=== PATIENT | male | born 1950 ===

== ENCOUNTER → 2025-02-05 11:23 | Outpatient (REF) | payer MEDICARE, SELFPAY ==
--- OUTSIDE RECORDS SUMMARY | 2024-10-11 03:15 | XMS_ITS ---
Author Organization [facility] Address [address] [facility] [address] [place] [address] Care Team Providers Care It Consulting Manager Name Role Phone KRISTA VILLEGAS Primary Care Provider REASON FOR VISIT fatigue, requesting stress test Encounters Encounter Location Date Provider Diagnosis [facility] [address] [facility] [address] [place] [address] 10/11/2024 KRISTA VILLEGAS Plan Of Treatment Next Appt Details Provider Name:KRISTA VILLEGAS , 02/20/2025 08:30:00 AM, [address] [place] [address], [place], [address], Provider Name:KRISTA VILLEGAS , 04/25/2025 08:00:00 AM, [address] [place] [address], [place], [address], Progress Notes * Henrik VILLEGAS JrDOB:1950 (74 yo M)Acc No.[id number]:10/11/2024 Progress Notes Patient: Teodoro CARRILLOloretta Gilbert Provider: Alexandria VILLEGAS MD :1950 A ge:74 Y S ex:Male Date:10/11/2024 [address] [id number] Subjective: * Chief Complaints: * 1 . Fatigue, requesting stress test. * Medical History: Objective: * Vitals: Assessment: Plan: * Treatment: * Images: * Electronic signature of VAUGHN VILLEGAS MD on 02/05/2025 at 02:30 PM EST Sign off status: Pending * Provider: Alexandria VILLEGAS MD Date: 0 10/11/2024 Generated for Lawrence mantilla/Isabelle/Pedro Luis on: 1 04/07/2024 02:30 PM EST
--- OUTSIDE RECORDS SUMMARY | 2025-02-05 14:30 | XMS_ITS | Patient Health Record ---
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 Metabolic Panel ([id number] Reviewed date:07/11/2024 04:28:20 PM Interpretation: Performing Lab:[facility], [address] [facility], Phone - [phone], Director - Darío Notes/Report: Glucose 104 70-99 mg/dL BUN 16 8-27 mg/dL Creatinine 0.96 0.76-1.27 mg/dL eGFR 82 >59 mL/min/1.73 BUN/Creatinine Ratio 17 10-24 Sodium 140 134-144 mmol/L Potassium 4.7 3.5-5.2 mmol/L Chloride 104 96-106 mmol/L Carbon Dioxide, Total 20 20-29 mmol/L Calcium 9.2 8.6-10.2 mg/dL Protein, Total 6.6 6.0-8.5 g/dL Albumin 4.4 3.8-4.8 g/dL Globulin, Total 2.2 1.5-4.5 g/dL Bilirubin, Total 1.5 0.0-1.2 mg/dL Alkaline Phosphatase 99 44-121 IU/L AST (SGOT) 17 0-40 IU/L ALT (SGPT) 18 0-44 IU/L Reason For Referral Reason Post Concussion Reha b Diagnosis 1 Postconcussional syn drome (F07.81) Referral Organization [facility] Referring Provider First Name [facility] Referring Provider [facility] Name [facility] Referring Provider Speciality Internal edicine Referred Provider Specialty Physical The rapist General Notes Referral faxed to [facility] per patient's request. Please contact the patient to schedule., Yanely Cooper 07/19/2024 09:23:42 AM > Referral Priority Routine Reason SOB On exertion Pl ease evaluate and treat Diagnosis 1 Shortness of breath (R06.02) Referral Organization [facility] Referring Provider First Name [facility] Referring Provider Last Name [facility] Referring Provider Speciality Internal edicine Referred Provider Specialty Cardiology General Notes Please call the [facility] to schedule the appointment, Encounter created and SMS sent to the pt., Adrianna Craig 10/12/2024 08:12:27 AM > Referral Priority Routine Medications Medication SIG (Take, Route, Fr equency, Duration) Notes Start Date End Date Status predniSONE 20 MG 3 tablets once a day for 5 days, 2 tablets once a day for 5 days, 1 tablet once a day for 5 days Orally; Duration: 15 days 04/12/2024 Not-Taking Azithromycin 250 MG as directed Orally 2 tablets on the first day, then 1 tablet daily; Duration: 5 days 04/12/2024 Not-Taking Wegovy 0.5 MG/0.5ML 0.5 mL Subcutaneous once a week; Duration: 30 days 07/03/2024 Active Immunizations Vaccine Route Administration Date Status Comme nts COVID 19 Pfizer Unknown 05/21/2020 Administered COVID 19 Pfizer Unknown 06/12/2020 Administered Pneumococcal conjugate PCV 13 Unknown 09/21/2017 Admini stered Pneumococcal polysaccharide PPV23 Unknown 08/13/2015 Ad ministered Tdap Unknown 01/05/2020 Administered TDAP Unknown 08/12/2007 Administered Social History Tobacco Use: Social History Observation Description Date Details (start date - stop date) Never Smoker NA - NA Tobacco Use/Smoking Question Answer Notes Are you a nonsmoker Alcohol Screen (Audit-C) Question Answer Notes Did you have a drink contain ing alcohol in the past year? Yes How often did you have a dri nk containing alcohol in the past year? 2 to 4 times a month (2 points) How many drinks did you have on a typical day when you were drinking in the past year? 1 or 2 drinks (0 point) How often did you have 6 or more drinks on one occasion in the past year? Never (0 point) Points 2 Interpretation Negative Problems Problem Type SNOMED Code ICD Code Onset Dates Problem Status W/U Status Risk Notes Problem Tinea pedis (8341533) Tinea pedis (B35.3) Active confirmed Problem Obesity due to excess calories (939558891) Other obesity due to excess calories (E66.09) Active confirmed Problem Postconcussion syndrome (77754890) Postconcussional syndrome (F07.81) Active confirmed Problem Snoring (05696787) Snoring (R06.83) Active confirmed Problem Adult health examination (052271252) Encounter for general adult medical examination without abnormal findings (Z00.00) Active confirmed Problem History of malignant neoplasm of prostate (124888633) Personal history of malignant neoplasm of prostate (Z85.46) Active confirmed Problem Obstructive sleep apnea (62176194) Obstructive sleep apnea (G47.33) Active confirmed Vital Signs Heart Rate 72 /min 01/22/2025 Temperature 97.3 degrees Fahrenheit 01/22/2025 Oximetry 99 % 01/22/2025 Blood pressure diastolic 70 mm Hg 01/22/2025 Height 68.11 in 01/22/2025 Blood pressure systolic 120 mm Hg 01/22/2025 Weight 206.4 lbs 01/22/2025 BMI 31.28 kg/m2 01/22/2025 Encounters Encounter Location Date Provider Diagnosis [address] [address] 03/21/2024 KRISTA VILLEGAS [address] [address] 04/12/2024 Ghadeer Mazloum Cough R05.[address] [address] 04/24/2024 VEALSCO GUL Encounter for genera l adult medical examination without abnormal findings Z00.00 ; Other obesity due to excess calories E66.09 ; Dietary counseling and surveillance Z71.3 and Personal history of malignant neoplasm of prostate Z85.[address] [place] [address] 05/09/[address] [place] [address] 05/10/[address] [place] [address] 06/19/2024 VELASCO GUL Other obesity due to excess calories E66.09 ; Dietary counseling and surveillance Z71.3 and Encounter for removal of sutures Z48.[address] [place] [address] 08/09/2024 VELASCO NELLY [address] [place] [address] 08/21/2024 VELASCO GUL Other obesity due to excess calories E66.09 and Dietary counseling and surveillance Z71.[address] [place] [address] 10/11/2024 VELASCO GUL Other obesity due to excess calories E66.09 ; Dietary counseling and surveillance Z71.3 and Shortness of breath R06.[address] [place] [address] 11/14/2024 VELASCO GUL Other obesity due to excess calories E66.09 and Dietary counseling and surveillance Z71.[address] [place] [address] 12/12/2024 VELASCO GUL Other obesity due to excess calories E66.09 ; Dietary counseling and surveillance Z71.3 and Obstructive sleep apnea G47.[address] [place] [address] 01/22/2025 VELASCO GUL Other obesity due to excess calories E66.09 ; Dietary counseling and surveillance Z71.3 and Obstructive sleep apnea G47.[address] [place] [address] 01/23/[address] [place] [address] 05/11/2024 VELASCO GU Other obesity due to excess calories E66.09 and Dietary counseling and surveillance Z71.[address] [place] [address] 05/11/[address] [place] [address] 06/02/[address] [place] [address] 07/03/[address] [place] [address] 07/03/[address] [place] [address] 07/04/2024 VELASCO [facility] History of falling Z91.81 and Unspecified injury of head, initial encounter S09.90XA [address] [place] [address] 07/19/[address] [place] [address] 08/08/[address] [place] [address] 10/12/2024 VELASCO [facility] Assessments Encounter Date Diagnosis (ICD Code) Assessment Notes Treatment Notes Treatment Clinical Notes Section Notes 04/24/2024 Other obesity due to excess calories (ICD-10 - E66.09) Jigna 73 years old pleasant gentleman with history of prostate cancer is here today for annual physical. Complains of dribbling of urine. Plan is as follows Dribbling of urine. Secondary to prostatectomy for prostate cancer. He can use Purewick and he was advised to discuss with his urologist at [place] for any other remedies. Obesity. Complications of obesity discussed with the patient and advised low calorie, low carbohydrate diet and regular exercise. Goal is to lose 6 pounds a month. If interested he can make a follow-up appointment at we will discuss medical weight management. Screening blood work ordered. He is up to date on a specific screening. he is full code and his is his healthcare proxy. Molst form discussed with the patient 04/24/2024 Encounter for general adult medical examination without abnormal findings (ICD-10 - Z00.00) Jigna 73 years old pleasant gentleman with history of prostate cancer is here today for annual physical. Complains of dribbling of urine. Plan is as follows Dribbling of urine. Secondary to prostatectomy for prostate cancer. He can use Purewick and he was advised to discuss with his urologist at [place] for any other remedies. Obesity. Complications of obesity discussed with the patient and advised low calorie, low carbohydrate diet and regular exercise. Goal is to lose 6 pounds a month. If interested he can make a follow-up appointment at we will discuss medical weight management. Screening blood work ordered. He is up to date on a specific screening. he is full code and his is his healthcare proxy. Molst form discussed with the patient 05/11/2024 Other obesity due to excess calories (ICD-10 - E66.09) Henrik is 73 years old gentleman with a history of prostate cancer, obesity was seen today to have yearly EKG done. EKG is normal sinus rhythm at 61 bpm with no acute ST or T wave changes, no bundle-branch blocks, normal intervals. 05/11/2024 Dietary counseling and surveillance (ICD-10 - Z71.3) Henrik is 73 years old gentleman with a history of prostate cancer, obesity was seen today to have yearly EKG done. EKG is normal sinus rhythm at 61 bpm with no acute ST or T wave changes, no bundle-branch blocks, normal intervals. 06/19/2024 Other obesity due to excess calories (ICD-10 - E66.09) Henrik is 73 years old gentleman with a history of prostate cancer is here for medical weight management. He also had a mechanical fall and had 12 joey placed on his scalp and it needs to be removed. Plan is as follows Staple removal. Under sterile condition with the consent of the patient 12 joey were removed. There were no signs of any infection or discharge. Advised to keep the area clean. Diet recommendation. Different dietary modalities discussed with the patient. She was advised to restrict her calories to less than 1500 kcal in 24 hours. Portion control recommended. Low glycemic index foods explained and education material given. Information on [employer] discussed. Mediterranean diet, keto diet, low carbohydrate diet explained and discussed with the patient. Patient advised to download applications for calorie counting. Patient was also advised to use kxdy-ebj-wktuehv vitamin D3 supplements and multivitamins. Pharmacotherapy. Patient will discuss with her insurance company regarding pharmacotherapy before re-proceed. Different medications and their side effects discussed with the patient. She will benefit from pharmacotherapy and does not have any contraindications Exercise. Patient encouraged to To do regular exercise. Encouraged to do aerobic and anaerobic exercises at least 3-4 days a week. Goal is to burn at least 250-500 in One session Behavioral therapy. Importance of behavioral health and weight management discussed with the patient. CBT and motivational interviewing will benefit the patient. If needed will do a referral to a psychologist/psych iatrist. Bariatric surgery. He does not qualifyfor surgery Screening blood work ordered. Assessed. The patient was assessed and patient does not have any behavioral risk or factors affecting goals of therapy Advised. Patient was given a personalized plan regarding the goals and pros and cons of the treatment Agreed. Collaboratively picked up a treatment plan and patient agreed with the plan Assisted. Patient is assisted in achieving goals. Arrange. Schedule follow-up with the patient to provide ongoing assistance and support and to review the management and treatment plan. Counseling. A total of 35 minutes spent with the patient and more than 50% of time was spent with the patient counseling and educating on different diets, side effects of different medications, pros and cons of medical and surgical weight management, importance of exercise and weight loss and psych intervention for weight loss. 07/04/2024 History of falling (ICD-10 - Z91.81) 08/21/2024 Other obesity due to excess calories (ICD-10 - E66.09) Henrik is 74 years old gentleman with prostate cancer is here today for medical weight management. Dietary recommendations. Food recall was done today and patient advised to be on low calorie, low carbohydrate diet. Restrict calories to less than 1500 kcal in 24 hours. Low glycemic index foods and encouraged. Meal replacements were recommended. Advised to use oknl-qmx-eknxqle multivitamins and vitamin D. Advised to use calorie counter and adhere to portion control. Monthly goal is to lose 4-6 pounds Pharmacotherapy. today he had first dose of wegovy 0.25 mg every weekly. Side effects explained to the patient. Goal is to lose 3-5% of body weight in 3 months. Exercise. Patient encouraged to increase frequency, intensity and duration of exercise. Encouraged to burn at least 250-500 kcal in one session. Also encouraged to do weight training Assess. Different risk factors discussed with the patient and addressed Advise. Patient was given clear And specific advise that she will comply with Low-calorie diet and try not to exceed more than 1300 kcal in 24 hours. Agree. Mutually agreed to work together to achieve appropriate goals Assist. Motivational interviewing done. Arrange. Follow-up appointment arranged. Counseling. 15 minutes spent Face to face with the patient more than 50% of time was spent counseling 08/21/2024 Dietary counseling and surveillance (ICD-10 - Z71.3) Henrik is 74 years old gentleman with prostate cancer is here today for medical weight management. Dietary recommendations. Food recall was done today and patient advised to be on low calorie, low carbohydrate diet. Restrict calories to less than 1500 kcal in 24 hours. Low glycemic index foods and encouraged. Meal replacements were recommended. Advised to use wauo-mkl-ediwyhm multivitamins and vitamin D. Advised to use calorie counter and adhere to portion control. Monthly goal is to lose 4-6 pounds Pharmacotherapy. today he had first dose of wegovy 0.25 mg every weekly. Side effects explained to the patient. Goal is to lose 3-5% of body weight in 3 months. Exercise. Patient encouraged to increase frequency, intensity and duration of exercise. Encouraged to burn at least 250-500 kcal in one session. Also encouraged to do weight training Assess. Different risk factors discussed with the patient and addressed Advise. Patient was given clear And specific advise that she will comply with Low-calorie diet and try not to exceed more than 1300 kcal in 24 hours. Agree. Mutually agreed to work together to achieve appropriate goals Assist. Motivational interviewing done. Arrange. Follow-up appointment arranged. Counseling. 15 minutes spent Face to face with the patient more than 50% of time was spent counseling 10/11/2024 Other obesity due to excess calories (ICD-10 - E66.09) Henrik is 74 years old gentleman with prostate cancer is here today for medical weight management. He has lost 7 pounds on our scale and roughly 10 pounds on his scale. He also complains of shortness of breath. Plan is as follows Shortness of breath. Differential is deconditioning, coronary insufficiency. He has risk factors for coronary artery disease. We will do echocardiogram and referral to jogger operator for further evaluation. Dietary recommendations. Food recall was done today and patient advised to be on low calorie, low carbohydrate diet. Restrict calories to less than 1500 kcal in 24 hours. Low glycemic index foods and encouraged. Meal replacements were recommended. Advised to use oaim-wmr-mwbrvut multivitamins and vitamin D. Advised to use calorie counter and adhere to portion control. Monthly goal is to lose 4-6 pounds Pharmacotherapy.. He is losing weight and we discussed to continue wegovy 0.25 mg every weekly. Side effects explained to the patient. Goal is to lose 3-5% of body weight in 3 months. Exercise. Patient encouraged to increase frequency, intensity and duration of exercise. Encouraged to burn at least 250-500 kcal in one session. Also encouraged to do weight training Assess. Different risk factors discussed with the patient and addressed Advise. Patient was given clear And specific advise that she will comply with Low-calorie diet and try not to exceed more than 1300 kcal in 24 hours. Agree. Mutually agreed to work together to achieve appropriate goals Assist. Motivational interviewing done. Arrange. Follow-up appointment arranged. Counseling. 15 minutes spent Face to face with the patient more than 50% of time was spent counseling 10/11/2024 Dietary counseling and surveillance (ICD-10 - Z71.3) Henrik is 74 years old gentleman with prostate cancer is here today for medical weight management. He has lost 7 pounds on our scale and roughly 10 pounds on his scale. He also complains of shortness of breath. Plan is as follows Shortness of breath. Differential is deconditioning, coronary insufficiency. He has risk factors for coronary artery disease. We will do echocardiogram and referral to jogger operator for further evaluation. Dietary recommendations. Food recall was done today and patient advised to be on low calorie, low carbohydrate diet. Restrict calories to less than 1500 kcal in 24 hours. Low glycemic index foods and encouraged. Meal replacements were recommended. Advised to use jhbt-zqn-kjeugmj multivitamins and vitamin D. Advised to use calorie counter and adhere to portion control. Monthly goal is to lose 4-6 pounds Pharmacotherapy.. He is losing weight and we discussed to continue wegovy 0.25 mg every weekly. Side effects explained to the patient. Goal is to lose 3-5% of body weight in 3 months. Exercise. Patient encouraged to increase frequency, intensity and duration of exercise. Encouraged to burn at least 250-500 kcal in one session. Also encouraged to do weight training Assess. Different risk factors discussed with the patient and addressed Advise. Patient was given clear And specific advise that she will comply with Low-calorie diet and try not to exceed more than 1300 kcal in 24 hours. Agree. Mutually agreed to work together to achieve appropriate goals Assist. Motivational interviewing done. Arrange. Follow-up appointment arranged. Counseling. 15 minutes spent Face to face with the patient more than 50% of time was spent counseling 11/14/2024 Other obesity due to excess calories (ICD-10 - E66.09) Henrik is 74 years old gentleman with history of prostate cancer is here for medical weight management. He did not lose any weight since his last visit. He is not compliant with low calorie diet. And he does not exercise regularly. Dietary recommendations. Food recall was done today and patient advised to be on low calorie, low carbohydrate diet. Restrict calories to less than 1500 kcal in 24 hours. Low glycemic index foods and encouraged. Meal replacements were recommended. Advised to use tkji-rfa-uqysyhu multivitamins and vitamin D. Advised to use calorie counter and adhere to portion control. Monthly goal is to lose 4-6 pounds Pharmacotherapy. Increase wegovy 0.5 mg daily. Side effects explained to the patient. Goal is to lose 3-5% of body weight in 3 months. Exercise. Patient encouraged to increase frequency, intensity and duration of exercise. Encouraged to burn at least 250-500 kcal in one session. Also encouraged to do weight training Assess. Different risk factors discussed with the patient and addressed Advise. Patient was given clear And specific advise that she will comply with Low-calorie diet and try not to exceed more than 1300 kcal in 24 hours. Agree. Mutually agreed to work together to achieve appropriate goals Assist. Motivational interviewing done. Arrange. Follow-up appointment arranged. Counseling. 15 minutes spent Face to face with the patient more than 50% of time was spent counseling 11/14/2024 Dietary counseling and surveillance (ICD-10 - Z71.3) Henrik is 74 years old gentleman with history of prostate cancer is here for medical weight management. He did not lose any weight since his last visit. He is not compliant with low calorie diet. And he does not exercise regularly. Dietary recommendations. Food recall was done today and patient advised to be on low calorie, low carbohydrate diet. Restrict calories to less than 1500 kcal in 24 hours. Low glycemic index foods and encouraged. Meal replacements were recommended. Advised to use vmfz-ybg-czmmzfo multivitamins and vitamin D. Advised to use calorie counter and adhere to portion control. Monthly goal is to lose 4-6 pounds Pharmacotherapy. Increase wegovy 0.5 mg daily. Side effects explained to the patient. Goal is to lose 3-5% of body weight in 3 months. Exercise. Patient encouraged to increase frequency, intensity and duration of exercise. Encouraged to burn at least 250-500 kcal in one session. Also encouraged to do weight training Assess. Different risk factors discussed with the patient and addressed Advise. Patient was given clear And specific advise that she will comply with Low-calorie diet and try not to exceed more than 1300 kcal in 24 hours. Agree. Mutually agreed to work together to achieve appropriate goals Assist. Motivational interviewing done. Arrange. Follow-up appointment arranged. Counseling. 15 minutes spent Face to face with the patient more than 50% of time was spent counseling 12/12/2024 Other obesity due to excess calories (ICD-10 - E66.09) Henrik is 74 years old gentleman with history of prostate cancer is here for medical weight management. He gained a pound on our scale. He is not compliant with low calorie diet. And he does not exercise regularly. He has obstructive sleep apnea and he follows up with pulmonary at [facility] in [place] and uses a mouth device and he complains of daytime tiredness and fatigue. Obstructive sleep apnea. Complications of obstructive sleep apnea discussed with the patient. 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 Dietary recommendations. Food recall was done today and patient advised to be on low calorie, low carbohydrate diet. Restrict calories to less than 1500 kcal in 24 hours. Low glycemic index foods and encouraged. Meal replacements were recommended. Advised to use ikyt-cqc-vtvldjj multivitamins and vitamin D. Advised to use calorie counter and adhere to portion control. Monthly goal is to lose 4-6 pounds Pharmacotherapy. Increase wegovy 0.5 mg daily. Side effects explained to the patient. Goal is to lose 3-5% of body weight in 3 months. Exercise. Patient encouraged to increase frequency, intensity and duration of exercise. Encouraged to burn at least 250-500 kcal in one session. Also encouraged to do weight training Assess. Different risk factors discussed with the patient and addressed Advise. Patient was given clear And specific advise that she will comply with Low-calorie diet and try not to exceed more than 1300 kcal in 24 hours. Agree. Mutually agreed to work together to achieve appropriate goals Assist. Motivational interviewing done. Arrange. Follow-up appointment arranged. Counseling. 15 minutes spent Face to face with the patient more than 50% of time was spent counseling 12/12/2024 Dietary counseling and surveillance (ICD-10 - Z71.3) Henrik is 74 years old gentleman with history of prostate cancer is here for medical weight management. He gained a pound on our scale. He is not compliant with low calorie diet. And he does not exercise regularly. He has obstructive sleep apnea and he follows up with pulmonary at [facility] in [place] and uses a mouth device and he complains of daytime tiredness and fatigue. Obstructive sleep apnea. Complications of obstructive sleep apnea discussed with the patient. 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 Dietary recommendations. Food recall was done today and patient advised to be on low calorie, low carbohydrate diet. Restrict calories to less than 1500 kcal in 24 hours. Low glycemic index foods and encouraged. Meal replacements were recommended. Advised to use skrq-ung-wqkgjoq multivitamins and vitamin D. Advised to use calorie counter and adhere to portion control. Monthly goal is to lose 4-6 pounds Pharmacotherapy. Increase wegovy 0.5 mg daily. Side effects explained to the patient. Goal is to lose 3-5% of body weight in 3 months. Exercise. Patient encouraged to increase frequency, intensity and duration of exercise. Encouraged to burn at least 250-500 kcal in one session. Also encouraged to do weight training Assess. Different risk factors discussed with the patient and addressed Advise. Patient was given clear And specific advise that she will comply with Low-calorie diet and try not to exceed more than 1300 kcal in 24 hours. Agree. Mutually agreed to work together to achieve appropriate goals Assist. Motivational interviewing done. Arrange. Follow-up appointment arranged. Counseling. 15 minutes spent Face to face with the patient more than 50% of time was spent counseling 06/19/2024 Dietary counseling and surveillance (ICD-10 - Z71.3) Henrik is 73 years old gentleman with a history of prostate cancer is here for medical weight management. He also had a mechanical fall and had 12 joey placed on his scalp and it needs to be removed. Plan is as follows Staple removal. Under sterile condition with the consent of the patient 12 joey were removed. There were no signs of any infection or discharge. Advised to keep the area clean. Diet recommendation. Different dietary modalities discussed with the patient. She was advised to restrict her calories to less than 1500 kcal in 24 hours. Portion control recommended. Low glycemic index foods explained and education material given. Information on Numetra discussed. Mediterranean diet, keto diet, low carbohydrate diet explained and discussed with the patient. Patient advised to download applications for calorie counting. Patient was also advised to use mtrl-tyi-lboqjyu vitamin D3 supplements and multivitamins. Pharmacotherapy. Patient will discuss with her insurance company regarding pharmacotherapy before re-proceed. Different medications and their side effects discussed with the patient. She will benefit from pharmacotherapy and does not have any contraindications Exercise. Patient encouraged to To do regular exercise. Encouraged to do aerobic and anaerobic exercises at least 3-4 days a week. Goal is to burn at least 250-500 in One session Behavioral therapy. Importance of behavioral health and weight management discussed with the patient. CBT and motivational interviewing will benefit the patient. If needed will do a referral to a psychologist/psych iatrist. Bariatric surgery. He does not qualifyfor surgery Screening blood work ordered. Assessed. The patient was assessed and patient does not have any behavioral risk or factors affecting goals of therapy Advised. Patient was given a personalized plan regarding the goals and pros and cons of the treatment Agreed. Collaboratively picked up a treatment plan and patient agreed with the plan Assisted. Patient is assisted in achieving goals. Arrange. Schedule follow-up with the patient to provide ongoing assistance and support and to review the management and treatment plan. Counseling. A total of 35 minutes spent with the patient and more than 50% of time was spent with the patient counseling and educating on different diets, side effects of different medications, pros and cons of medical and surgical weight management, importance of exercise and weight loss and psych intervention for weight loss. 01/22/2025 Other obesity due to excess calories (ICD-10 - E66.09) Henrik is 74 years old gentleman with history of prostate cancer is here for medical weight management. He lost 6 pounds and trying to be compliant with low calorie diet. And he does not exercise regularly. He has obstructive sleep apnea and he follows up with pulmonary at [facility] in [place] and uses a mouth device and he complains of daytime tiredness and fatigue. Obstructive sleep apnea. Complications of obstructive sleep apnea discussed with the patient. 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 Dietary recommendations. Food recall was done today and patient advised to be on low calorie, low carbohydrate diet. Restrict calories to less than 1500 kcal in 24 hours. Low glycemic index foods and encouraged. Meal replacements were recommended. Advised to use perq-qqr-ptpqpsr multivitamins and vitamin D. Advised to use calorie counter and adhere to portion control. Monthly goal is to lose 4-6 pounds Pharmacotherapy. continue wegovy 0.5 mg daily. Side effects explained to the patient. Goal is to lose 3-5% of body weight in 3 months. Exercise. Patient encouraged to increase frequency, intensity and duration of exercise. Encouraged to burn at least 250-500 kcal in one session. Also encouraged to do weight training Assess. Different risk factors discussed with the patient and addressed Advise. Patient was given clear And specific advise that she will comply with Low-calorie diet and try not to exceed more than 1300 kcal in 24 hours. Agree. Mutually agreed to work together to achieve appropriate goals Assist. Motivational interviewing done. Arrange. Follow-up appointment arranged. Counseling. 15 minutes spent Face to face with the patient more than 50% of time was spent counseling 01/22/2025 Dietary counseling and surveillance (ICD-10 - Z71.3) Henrik is 74 years old gentleman with history of prostate cancer is here for medical weight management. He lost 6 pounds and trying to be compliant with low calorie diet. And he does not exercise regularly. He has obstructive sleep apnea and he follows up with pulmonary at [facility] in [place] and uses a mouth device and he complains of daytime tiredness and fatigue. Obstructive sleep apnea. Complications of obstructive sleep apnea discussed with the patient. 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 Dietary recommendations. Food recall was done today and patient advised to be on low calorie, low carbohydrate diet. Restrict calories to less than 1500 kcal in 24 hours. Low glycemic index foods and encouraged. Meal replacements were recommended. Advised to use oiic-wrt-fsvbmhr multivitamins and vitamin D. Advised to use calorie counter and adhere to portion control. Monthly goal is to lose 4-6 pounds Pharmacotherapy. continue wegovy 0.5 mg daily. Side effects explained to the patient. Goal is to lose 3-5% of body weight in 3 months. Exercise. Patient encouraged to increase frequency, intensity and duration of exercise. Encouraged to burn at least 250-500 kcal in one session. Also encouraged to do weight training Assess. Different risk factors discussed with the patient and addressed Advise. Patient was given clear And specific advise that she will comply with Low-calorie diet and try not to exceed more than 1300 kcal in 24 hours. Agree. Mutually agreed to work together to achieve appropriate goals Assist. Motivational interviewing done. Arrange. Follow-up appointment arranged. Counseling. 15 minutes spent Face to face with the patient more than 50% of time was spent counseling 04/12/2024 Cough (ICD-10 - R05.9) Mr. Villegas is 73 years old gentleman with history of prostate cancer status post prostatectomy here complaining for Productive cough, he states that has been worsening for the past couple of weeks. He states that he does follow with job lithographer in [place] and he was given an inhaled corticosteroid, is not sure about the name or the dosage is currently on. She is not sure about the diagnosis that he was given as well. Plan as follows Cough -He is a former smoker. Based on Current presentation, he is currently on inhaled corticosteroid And albuterol as needed. His symptoms are more consistent with obstructive lung disease and he is currently in flare up. I have started patient on Z-Campos and prednisone with taper. Advised patient and continue to use the inhaled corticosteroid twice daily and albuterol as needed. 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 - We will also send records from his job lithographer for review and update I have rendered the services for this patient under direct supervision of Dr. Villegas, who did not see the patient but was available upon request 01/22/2025 Obstructive sleep apnea (ICD-10 - G47.33) Henrik is 74 years old gentleman with history of prostate cancer is here for medical weight management. He lost 6 pounds and trying to be compliant with low calorie diet. And he does not exercise regularly. He has obstructive sleep apnea and he follows up with pulmonary at [facility] in [place] and uses a mouth device and he complains of daytime tiredness and fatigue. Obstructive sleep apnea. Complications of obstructive sleep apnea discussed with the patient. 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 Dietary recommendations. Food recall was done today and patient advised to be on low calorie, low carbohydrate diet. Restrict calories to less than 1500 kcal in 24 hours. Low glycemic index foods and encouraged. Meal replacements were recommended. Advised to use bbkc-yog-eyobmbe multivitamins and vitamin D. Advised to use calorie counter and adhere to portion control. Monthly goal is to lose 4-6 pounds Pharmacotherapy. continue wegovy 0.5 mg daily. Side effects explained to the patient. Goal is to lose 3-5% of body weight in 3 months. Exercise. Patient encouraged to increase frequency, intensity and duration of exercise. Encouraged to burn at least 250-500 kcal in one session. Also encouraged to do weight training Assess. Different risk factors discussed with the patient and addressed Advise. Patient was given clear And specific advise that she will comply with Low-calorie diet and try not to exceed more than 1300 kcal in 24 hours. Agree. Mutually agreed to work together to achieve appropriate goals Assist. Motivational interviewing done. Arrange. Follow-up appointment arranged. Counseling. 15 minutes spent Face to face with the patient more than 50% of time was spent counseling 07/04/2024 Unspecified injury of head, initial encounter (ICD-10 - S09.90XA) 12/12/2024 Obstructive sleep apnea (ICD-10 - G47.33) Henrik is 74 years old gentleman with history of prostate cancer is here for medical weight management. He gained a pound on our scale. He is not compliant with low calorie diet. And he does not exercise regularly. He has obstructive sleep apnea and he follows up with pulmonary at [facility] in [place] and uses a mouth device and he complains of daytime tiredness and fatigue. Obstructive sleep apnea. Complications of obstructive sleep apnea discussed with the patient. 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 Dietary recommendations. Food recall was done today and patient advised to be on low calorie, low carbohydrate diet. Restrict calories to less than 1500 kcal in 24 hours. Low glycemic index foods and encouraged. Meal replacements were recommended. Advised to use tamb-day-twulgeb multivitamins and vitamin D. Advised to use calorie counter and adhere to portion control. Monthly goal is to lose 4-6 pounds Pharmacotherapy. Increase wegovy 0.5 mg daily. Side effects explained to the patient. Goal is to lose 3-5% of body weight in 3 months. Exercise. Patient encouraged to increase frequency, intensity and duration of exercise. Encouraged to burn at least 250-500 kcal in one session. Also encouraged to do weight training Assess. Different risk factors discussed with the patient and addressed Advise. Patient was given clear And specific advise that she will comply with Low-calorie diet and try not to exceed more than 1300 kcal in 24 hours. Agree. Mutually agreed to work together to achieve appropriate goals Assist. Motivational interviewing done. Arrange. Follow-up appointment arranged. Counseling. 15 minutes spent Face to face with the patient more than 50% of time was spent counseling 10/11/2024 Shortness of breath (ICD-10 - R06.02) Henrik is 74 years old gentleman with prostate cancer is here today for medical weight management. He has lost 7 pounds on our scale and roughly 10 pounds on his scale. He also complains of shortness of breath. Plan is as follows Shortness of breath. Differential is deconditioning, coronary insufficiency. He has risk factors for coronary artery disease. We will do echocardiogram and referral to jogger operator for further evaluation. Dietary recommendations. Food recall was done today and patient advised to be on low calorie, low carbohydrate diet. Restrict calories to less than 1500 kcal in 24 hours. Low glycemic index foods and encouraged. Meal replacements were recommended. Advised to use wvwa-ckt-heohuyr multivitamins and vitamin D. Advised to use calorie counter and adhere to portion control. Monthly goal is to lose 4-6 pounds Pharmacotherapy.. He is losing weight and we discussed to continue wegovy 0.25 mg every weekly. Side effects explained to the patient. Goal is to lose 3-5% of body weight in 3 months. Exercise. Patient encouraged to increase frequency, intensity and duration of exercise. Encouraged to burn at least 250-500 kcal in one session. Also encouraged to do weight training Assess. Different risk factors discussed with the patient and addressed Advise. Patient was given clear And specific advise that she will comply with Low-calorie diet and try not to exceed more than 1300 kcal in 24 hours. Agree. Mutually agreed to work together to achieve appropriate goals Assist. Motivational interviewing done. Arrange. Follow-up appointment arranged. Counseling. 15 minutes spent Face to face with the patient more than 50% of time was spent counseling 06/19/2024 Encounter for removal of sutures (ICD-10 - Z48.02) Henrik is 73 years old gentleman with a history of prostate cancer is here for medical weight management. He also had a mechanical fall and had 12 joey placed on his scalp and it needs to be removed. Plan is as follows Staple removal. Under sterile condition with the consent of the patient 12 joey were removed. There were no signs of any infection or discharge. Advised to keep the area clean. Diet recommendation. Different dietary modalities discussed with the patient. She was advised to restrict her calories to less than 1500 kcal in 24 hours. Portion control recommended. Low glycemic index foods explained and education material given. Information on Numetra discussed. Mediterranean diet, keto diet, low carbohydrate diet explained and discussed with the patient. Patient advised to download applications for calorie counting. Patient was also advised to use rfoo-ffl-svarvjp vitamin D3 supplements and multivitamins. Pharmacotherapy. Patient will discuss with her insurance company regarding pharmacotherapy before re-proceed. Different medications and their side effects discussed with the patient. She will benefit from pharmacotherapy and does not have any contraindications Exercise. Patient encouraged to To do regular exercise. Encouraged to do aerobic and anaerobic exercises at least 3-4 days a week. Goal is to burn at least 250-500 in One session Behavioral therapy. Importance of behavioral health and weight management discussed with the patient. CBT and motivational interviewing will benefit the patient. If needed will do a referral to a psychologist/psych iatrist. Bariatric surgery. He does not qualifyfor surgery Screening blood work ordered. Assessed. The patient was assessed and patient does not have any behavioral risk or factors affecting goals of therapy Advised. Patient was given a personalized plan regarding the goals and pros and cons of the treatment Agreed. Collaboratively picked up a treatment plan and patient agreed with the plan Assisted. Patient is assisted in achieving goals. Arrange. Schedule follow-up with the patient to provide ongoing assistance and support and to review the management and treatment plan. Counseling. A total of 35 minutes spent with the patient and more than 50% of time was spent with the patient counseling and educating on different diets, side effects of different medications, pros and cons of medical and surgical weight management, importance of exercise and weight loss and psych intervention for weight loss. 04/24/2024 Dietary counseling and surveillance (ICD-10 - Z71.3) Jigna 73 years old pleasant gentleman with history of prostate cancer is here today for annual physical. Complains of dribbling of urine. Plan is as follows Dribbling of urine. Secondary to prostatectomy for prostate cancer. He can use Purewick and he was advised to discuss with his urologist at [place] for any other remedies. Obesity. Complications of obesity discussed with the patient and advised low calorie, low carbohydrate diet and regular exercise. Goal is to lose 6 pounds a month. If interested he can make a follow-up appointment at we will discuss medical weight management. Screening blood work ordered. He is up to date on a specific screening. he is full code and his is his healthcare proxy. Molst form discussed with the patient 04/24/2024 Personal history of malignant neoplasm of prostate (ICD-10 - Z85.46) Jigna 73 years old pleasant gentleman with history of prostate cancer is here today for annual physical. Complains of dribbling of urine. Plan is as follows Dribbling of urine. Secondary to prostatectomy for prostate cancer. He can use Purewick and he was advised to discuss with his urologist at [place] for any other remedies. Obesity. Complications of obesity discussed with the patient and advised low calorie, low carbohydrate diet and regular exercise. Goal is to lose 6 pounds a month. If interested he can make a follow-up appointment at we will discuss medical weight management. Screening blood work ordered. He is up to date on a specific screening. he is full code and his is his healthcare proxy. Molst form discussed with the patient Plan Of Treatment Pending Test Test Name Order Date Echocardiogram 10/11/2024 CT Brain WO 07/04/2024 Next Appt Details Provider Name:KRISTA VILLEGAS , 02/20/2025 08:30:00 AM, [address] [facility] [address], [place], [address], Provider Name:KRISTA VILLEGAS , 04/25/2025 08:00:00 AM, [address] [facility] [address], [place], [address], Insurance Providers Payer Name Payer Address Payer Phone Subscriber Number Group Number Insured Name Patient Relationship to Insured Coverage Start Date Coverage End Date Medicare [address] [place] [phone] [id number] Henrik Villegas Self - patient is the insured 4 [facility] [address] [place] [address] [phone] [id number] Henrik Villegas Self - patient is the insured Medical (General) History Medical History History ICD Code Sleep apnea and he uses a mouth device Prostate cancer Surgical History Surgery Date(Month/Year) prostatectomy s/p Prostate c ancer. s/p chemo and XRT. go to Dr Dori Gaming at [facility] 2006 right shoulder surgery. by Dr Iverson Hospitalization History Reason Date(Month/Year)
--- OUTSIDE RECORDS SUMMARY | 2025-02-05 14:30 | XMS_ITS | Encounter Summary ---
Author Organization [facility] Address [address] [place] [phone] Phone Care Team Providers Care Tax Associate Name Role Phone Carmelita Gaming MD Unavailable Roberta Avila MD Primary Care Provider Kim Freeman RN Unavailable [email or web address] Reynold Bynum MD, [facility] Unavailable Encounter Details Date Type Department Care Team (Late st Contact Info) Description 05/13/2023 Procedure Pass [facility] Echocardiography [address] [place] [address] Social History Tobacco Use Types Packs/Day Years Used Date Smoking Tobacco: Former Cigarettes Q uit: 04/10/1978 Smokeless Tobacco: Never Comments:Smoking History Pac ks/day: <=0.5 Alcohol Use Standard Drinks/Week Comments Yes 0 (1 standard drink = 0.6 oz pur e alcohol) 4 drinks/week Education Answer Date Recorded Are you interested in more education? Not on alfa e 08/02/2022 Are you concerned about learning? Not on file 08/02/2022 No 08/02/2022 No 08/02/2022 Digital Access Answer Date Recorded No 08/28/2022 No 08/28/2022 Reliable internet access at home? Not on file 08/28/2022 Device with a working camera? Not on file Sex and Gender Information Value Date Recorded Sex Assigned at Male 04/07/2021 4:15 PM EST Legal Sex Male 4:59 PM EST Gender Identity Male 04/07/2021 4:15 PM EST Sexual Orientation Straight 04/07/2021 4: 15 PM EST documented as of this encounter Plan of Treatment Upcoming Encounters Date Type Department Care Team (Late st Contact Info) Description 05/29/2025 9:00 AM EST Blood Draw Laboratory Services, [address] [place] [address] Carmelita Gaming MD [address] [place] [id number] [email or web address] 05/29/2025 10:00 AM EST Office Visit [facility], [address] [place] [address] Carmelita Gaming MD [address] [place] [id number] [email or web address] 06/08/2025 11:00 AM EST Office Visit [facility] [address] [place] [address] Reynold Bynum MD, [address] [address] [email or web address] 06/26/2025 7:00 PM EDT Procedure visit [facility] Sleep Lab Home Sleep Apnea Testing Program [address] [place] [address] [address] [place] [address] Reynold Bynum MD, [facility] [address] [place] [address] [email or web address] documented as of this encounter Visit Diagnoses Not on filedocumented in this encounter Additional Health Concerns Assessment Noted Time PHQ-2 Depression Total Score: 0 01/15/20 21 3:15 PM EDT documented as of this encounter Care Teams Tax Associate Relationship Specialty Start Date End Date Roberta Avila MD [address] [address] PCP - General Internal Medicine 07/12/18 Carmelita Gaming MD [address] [place] [id number] [email or web address] 01/18/18 Kim Freeman RN [address] [id number] [email or web address] Primary Infusion Nurse 02/02/19 Reynold Bynum MD, [facility] [address] [place] [address] [email or web address] Pulmonary Disease 04/09/23 documented as of this encounter Additional Source Comments The information contained in this document represents components of the legal health record. It is not the complete legal health record.[facility]
--- OUTSIDE RECORDS SUMMARY | 2025-02-05 14:30 | XMS_ITS | Encounter Summary ---
Author Organization [facility] Address [address] [place] [address] Phone Care Team Providers Care Cleaning And Maintenance Worker Name Role Phone Carmelita Gaming MD Unavailable [phone] Roberta Avila MD Primary Care Provider Kim Freeman RN Unavailable YAIMA [email or web address] Reynold Bynum MD, [facility] Unavailable Encounter Details Date Type Department Care Team (Late st Contact Info) Description 01/05/2021 Procedure Pass [facility] Endoscopy Department [address] [place] [address] Social History Tobacco Use Types Packs/Day Years Used Date Smoking Tobacco: Former Smokeless Tobacco: Never Comments:Smoking History Pac ks/day: <=0.5 Alcohol Use Standard Drinks/Week Comments Yes 0 (1 standard drink = 0.6 oz pur e alcohol) 4 drinks/week Sex and Gender Information Value Date Recorded [...] 9:00 AM EST Blood [facility] Services, [address], 2nd [place] [address] Carmelita Gaming MD [address] [place] [address] [address] [place] [address] Ita@[facility] 05/29/2025 10:00 AM EST Office Visit [facility] Genitourinary On[facility], [address], [address] [place] [address] Carmelita Gaming MD [address] [place] [address] [address] Ita@[facility] 06/08/2025 11:00 AM EST Office Visit [facility] Diseases [address] [place] [address] Reynold Bynum MD, [address] [address] BARRIE@[facility] 06/26/2025 7:00 PM EDT Procedure visit [facility] Sleep Lab Home Sleep Apnea Testing Program [address] [place] [address] [address] Reynold Bynum MD, [address] [address] BARRIE@[email or web address] documented as of this encounter Visit Diagnoses Not on filedocumented in this encounter Additional Health Concerns Infection Onset Date Last Indicated Resolved Time COVID-19 03/03/2021 03/03/2021 03/23/2021 1:21 AM EST documented as of this encounter Care Teams Cleaning And Maintenance Worker Relationship Specialty Start Date End Date Roberta Avila MD [address] [address] PCP - General Internal Medicine 07/12/18 Carmelita Gaming MD [address] [place] [address] Ita@[email or web address] Medical Oncology 01/18/18 Kim Freeman RN [address] [address] [email or web address] Primary Infusion Nurse 02/02/19 Reynold Bynum MD, [facility] [address] [place] [address] BARRIE@[email or web address] u Pulmonary Disease 04/09/23 documented as of this encounter Additional Source Comments The information contained in this document represents components of the legal health record. It is not the complete legal health record.[facility]
--- OUTSIDE RECORDS SUMMARY | 2025-02-05 14:30 | XMS_ITS | Encounter Summary ---
Author Organization [facility] Address [address] [place] [address] [address] [place] [address] Phone Care Team Providers Care Ad Setter Name Role Phone Carmelita Gaming MD Unavailable Roberta Avila MD Primary Care Provider Kim Freeman RN Unavailable YAIMA [email or web address] Reynold Bynum MD, [facility] Unavailable [phone] Encounter Details Date Type Department Care Team (Late st Contact Info) Description 05/27/2023 [facility] Pass [facility] [address] [place] [address] Social History Tobacco Use Types Packs/Day Years [...] 9:00 AM EST Blood Draw Laboratory Services, [address], 2nd [place] [address] Carmelita Gaming MD [address] [place] [address] Ita@[facility] 05/29/2025 10:00 AM EST Office Visit [facility] Genitourinary On[facility], [address], 11th [place] [address] Carmelita Gaming MD [address] [place] [address] Ita@[facility] 06/08/2025 11:00 AM EST [facility] Diseases [address] [place] [address] Reynold Bynum MD, [address] [address] BARRIE@[email or web address] 06/26/2025 7:00 PM EDT Procedure visit [facility] Sleep Lab Home Sleep Apnea Testing Program [address] [place] [address] 2nd [place] [address] Reynold Bynum MD, [facility] 15 [place] [address] BARRIE@[email or web address] documented as of this encounter Visit Diagnoses Not on filedocumented in this encounter Additional Health Concerns Assessment Noted Time PHQ-2 Depression Total Score: 0 01/15/20 21 3:15 PM EDT documented as of this encounter Care Teams Ad Setter Relationship Specialty Start Date End Date Roberta Avila MD [address] [address] PCP - General Internal Medicine 07/12/18 Carmelita Gaming MD [address] [place] [address] Ita@[facility] Medical Oncology 01/18/18 Kim Freeman RN [address] [address] [email or web address] Primary Infusion Nurse 02/02/19 Reynold Bynum MD, [facility] 15 [place] [address] BARRIE@[email or web address] u Pulmonary Disease 04/09/23 documented as of this encounter Additional Source Comments The information contained in this document represents components of the legal health record. It is not the complete legal health record.[facility]
--- OUTSIDE RECORDS SUMMARY | 2025-02-05 14:30 | XMS_ITS | Encounter Summary ---
Author Organization [facility] Address [address] [place] [address] Phone Care Team Providers Care Animal Chiropractor Name Role Phone Carmelita Gaming MD Unavailable [phone] Roberta Avila MD Primary Care Provider Kim Freeman RN Unavailable YAIMA [email or web address] Reynold Bynum MD, [facility] Unavailable Encounter Details Date Type Department Care Team (Late Contact Info) Description 04/28/2023 Procedure Pass [facility] Cardiovascular Center [facility] - [address] [place] [address] Social History Tobacco Use Types Packs/Day Years [...] 9:00 AM EST Blood Draw Laboratory Services, [address], 2nd [place] [address] Carmelita Gaming MD [address] [place] [address] Ita@[facility] 05/29/2025 10:00 AM EST Office Visit [facility] for Genitourinary Oncology, [address], 11th [place] [address] Carmelita Gaming MD [address] [place] [address] Ita@[facility] 06/08/2025 11:00 AM EST Office Visit [facility] for Chest Diseases [address] [place] [address] Reynold Bynum MD, [address] [address] BARRIE@[facility] [place] 06/26/2025 7:00 PM EDT Procedure visit [facility] Sleep Lab Home Sleep Apnea Testing Program 5 [facility] 2nd [place] [address] Reynold Bynum MD, [facility] 15 [place] [address] BARRIE@[facility] documented as of this encounter Visit Diagnoses Not on filedocumented in this encounter Additional Health Concerns Assessment Noted Time PHQ-2 Depression Total Score: 0 01/15/20 21 3:15 PM EDT documented as of this encounter Care Teams Animal Chiropractor Relationship Specialty Start Date End Date Roberta Avila MD [address] [address] PCP - General Internal Medicine 07/12/18 Carmelita Gaming MD [address] [place], [place] [address] [place] [address] Ita@[facility] Medical Oncology 01/18/18 Kim Freeman RN [address] [address] [email or web address] Primary Infusion Nurse 02/02/19 Reynold Bynum MD, [facility] [address] [place] [address] BARRIE@[email or web address] u Pulmonary Disease 04/09/23 documented as of this encounter Additional Source Comments The information contained in this document represents components of the legal health record. It is not the complete legal health record.[facility]
--- OUTSIDE RECORDS SUMMARY | 2025-02-05 14:30 | XMS_ITS | Encounter Summary ---
Author Organization [facility] Address [address] [place] [address] Phone Care Team Providers Care Pipe Finishing Supervisor Name Role Phone Carmelita Gaming MD Unavailable Roberta Avila MD Primary Care Provider Kim Freeman RN Unavailable YAIMA [email or web address] Reynold Bynum MD, [facility] Unavailable Encounter Details Date Type Department Care Team (Late st Contact Info) Description 01/08/2021 Procedure Pass [facility] Endoscopy Department [address] [place] [address] Social History Tobacco Use Types Packs/Day Years [...] 9:00 AM EST Blood Draw Laboratory Services, [address], 2nd [place] [address] Carmelita Gaming MD [address] [place] [address] [address] [place] [address] Ita@[email or web address] 05/29/2025 10:00 AM EST Office Visit [facility] Center for Genitourinary Oncology, [address], [address] [place] [address] Carmelita Gaming MD [address] [place] [address] [address] Ita@[email or web address] 06/08/2025 11:00 AM EST Office Visit [facility] for Chest Diseases [address] [place] [address] Reynold Bynum MD, [address] [address] BARRIE@[facility] 06/26/2025 7:00 PM EDT Procedure visit [facility] Lab Home Sleep Apnea Testing Program [address] [place] [address] [address] Reynold Bynum MD, [address] [address] BARRIE@[email or web address] documented as of this encounter Visit Diagnoses Not on filedocumented in this encounter Additional Health Concerns Infection Onset Date Last Indicated Resolved Time COVID-19 03/03/2021 03/03/2021 03/23/2021 1:21 AM EST documented as of this encounter Care Teams Pipe Finishing Supervisor Relationship Specialty Start Date End Date Roberta Avila MD [address] [address] PCP - General Internal Medicine 07/12/18 Carmelita Gaming MD [address] [place] [address] Ita@[email or web address] Medical Oncology 01/18/18 Kim Freeman RN [address] [address] [email or web address] Primary Infusion Nurse 02/02/19 Reynold Bynum MD, [facility] [address] [place] [address] BARRIE@[email or web address] u Pulmonary Disease 04/09/23 documented as of this encounter Additional Source Comments The information contained in this document represents components of the legal health record. It is not the complete legal health record.[facility]
--- OUTSIDE RECORDS SUMMARY | 2025-02-05 14:30 | XMS_ITS | Encounter Summary ---
Author Organization [facility] Address [address] [place] [address] [place] [address] Phone Care Team Providers Care Warehouse Stock Clerk Name Role Phone Carmelita Gaming MD Unavailable [phone] Roberta Avila MD Primary Care Provider Kim Freeman RN Unavailable YAIMA [email or web address] Sol Galarza RN Unavailable Cody [email or web address] Reynold Bynum MD, [facility] Unavailable + [phone] Encounter Details Date Type Department Care Team (Late st Contact Info) Description 04/16/2020 Procedure Pass [facility] Imaging [facility], [facility] [place], [place] [address] [facility], Floor [address] [place], [place] [address] Social History Tobacco Use Types Packs/Day Years Used Date Smoking Tobacco: Former Smokeless Tobacco: Never Comments:Smoking History Pac ks/day: <=0.5 Sex and Gender Information Value Date Recorded [...] AM EST Blood Draw Laboratory Services, [address], [address] [place] [address] Carmelita Gaming MD [address] [place] [address] [place] [address] Ita@[facility] 05/29/2025 10:00 AM EST Office Visit [facility] Center for Genitourinary Oncology, [address], 11th [place] [address] Carmelita Gaming MD [address] [place] [address] DA 1230 [place] [address] Ita@[facility] 06/08/2025 11:00 AM EST Office Visit [facility] Center for Chest Diseases [address] [place] [address] Reynold Bynum MD, [address] [address] BARRIE@[email or web address] 06/26/2025 7:00 PM EDT Procedure visit [facility] Sleep Lab Home Sleep Apnea Testing Program [address] [place] [address] [place] [address] Reynold Bynum MD, [address] [address] BARRIE@[facility] documented as of this encounter Visit Diagnoses Not on filedocumented in this encounter Additional Health Concerns Infection Onset Date Last Indicated Resolved Time COVID-19 03/03/202103/03/2021 03/23/2021 1:21 AM EST documented as of this encounter Care Teams Warehouse Stock Clerk Relationship Specialty Start Date End Date Roberta Avila MD [address] [address] PCP - General Internal Medicine 07/12/18 Carmelita Gaming MD [address] [place] [address] Ita@[facility] Medical Oncology 01/18/18 Kim Freeman RN [address] [email or web address] Primary Infusion Nurse 02/02/19 Sol Galarza RN [address] Genna@[facility] Associate Infusion Nurse 05/29/19 11/10/20 Reynold Bynum MD, [facility] [address] [place] [address] BARRIE@[facility] Pulmonary Disease 04/09/23 documented as of this encounter Additional Source Comments The information contained in this document represents components of the legal health record. It is not the complete legal health record.[facility]
--- OUTSIDE RECORDS SUMMARY | 2025-02-05 14:30 | XMS_ITS | Encounter Summary ---
Author Organization [facility] Address [address] [place] [address] [place] [address] Phone Care Team Providers Care Energy Director Name Role Phone Carmelita Gaming MD Unavailable [phone] Roberta Avila MD Primary Care Provider Kim Freeman RN Unavailable YAIMA [email or web address] Sol Galarza RN Unavailable Cody [email or web address] Reynold Bynum MD, [facility] Unavailable + [phone] Encounter Details Date Type Department Care Team (Late st Contact Info) Description 04/16/2020 Procedure Pass [facility] Imaging Department, [facility] Cancer [place], [place] [address] [facility], Floor [address] [place], [place] [address] Social History Tobacco Use Types Packs/Day Years [...] 9:00 AM EST Blood Draw Laboratory Services, [address], [address]nd [place] [address] Carmelita Gaming MD [address] [place] [address] [place] [address] Ita@[facility] 05/29/2025 10:00 AM EST Office Visit [facility] for Genitourinary Oncology, [address], 11th [place] [address] Carmelita Gaming MD [address] [place] [address] DA 1230 [place] [address] Ita@[facility] 06/08/2025 11:00 AM EST Office Visit [facility] for Chest Diseases [address] [place] [address] Reynold Bynum MD, [address] [address] BARRIE@[email or web address] 06/26/2025 7:00 PM EDT Procedure visit [facility] Sleep Lab Home Sleep Apnea Testing Program [address] [place] [address] [place] [address] Reynold Bynum MD, [address] [address] BARRIE@[facility] documented as of this encounter Visit Diagnoses Not on filedocumented in this encounter Additional Health Concerns Infection Onset Date Last Indicated Resolved Time COVID-19 03/03/202103/03/2021 03/23/2021 1:21 AM EST documented as of this encounter Care Teams Energy Director Relationship Specialty Start Date End Date Roberta Avila MD [address] [address] PCP - General Internal Medicine 07/12/18 Carmelita Gaming MD [address] [place] [address] Ita@[facility] Medical Oncology 01/18/18 Kim Freeman RN [address] [email or web address] Primary Infusion Nurse 02/02/19 Sol Galarza RN [address] Genna@[facility] Associate Infusion Nurse 05/29/19 11/10/20 Reynold Bynum MD, [facility] [address] [place] [address] BARRIE@[facility] Pulmonary Disease 04/09/23 documented as of this encounter Additional Source Comments The information contained in this document represents components of the legal health record. It is not the complete legal health record.[facility]
--- OUTSIDE RECORDS SUMMARY | 2025-02-05 14:31 | XMS_ITS | Encounter Summary ---
Author Organization [facility] Address [address] [place] [address] Phone Care Team Providers Care Ticket Collector Name Role Phone Carmelita Gaming MD Unavailable [phone] Roberta Avila MD Primary Care Provider [phone] Kim Freeman RN Unavailable [email or web address] Reynold Bynum MD, [facility] [place] [place] Unavailable [phone] Reason for Referral * MRI/CAT Scan - Closed Specialty Diagnoses / Procedures Referred By Kayli vallejo Referred To Contact Radiology Diagnoses Calculus of gallbladder with chronic cholecystitis without obstruction Procedures NM SPECT/CT Single Area Single Day CHG RP LOCLZJ ABBI SPECT W/CT 1 AREA 1 DAY IMAGING Luiz López MD Phone: tel: fax: mailto:[email or web address] Referral ID Status Reason Start Date Expiration Date Visits Re quested Visits Authorized [id number] Closed 12/18/2020 12/18/2021 1 1 Encounter Details Date Type Department Care Team (Latest Contact Info) Description 12/18/2020 Ancillary Orders [facility] General & GI Surgery [address] [place] [address] Luiz López MD [address] [facility] 3rd [place] [address] [email or web address] Calculus of gallbladder with chronic cholecystitis without obstruction Social History Tobacco Use Types Packs/Day Years [...] 9:00 AM EST Blood Draw Laboratory Services, [address], 2nd [place] [address] Carmelita Gaming MD [address] [place] [address] [email or web address] 05/29/2025 10:00 AM EST Office Visit [facility] Center for Genitourinary Oncology, [facility] [place] [address] [facility], 11th [place] [address] Carmelita Gaming MD [address] [place] [address] [email or web address] 06/08/2025 11:00 AM EST Office Visit [facility] - Center for Chest Diseases [address] [place] [address] Reynold Bynum MD, [address] [address] [email or web address] 06/26/2025 7:00 PM EDT Procedure visit [facility] Sleep Lab Home Sleep Apnea Testing Program [address]nd [place] [address] Reynold Bynum MD, [address] [address] [email or web address] documented as of this encounter Results * NM SPECT/CT Single Area Single Day (12/18/2020 12:39 PM EDT) Anatomical Region Laterality Modality Nuclear Medicine 12/18/2020 1:39 PM EDT Impressions 12/18/2020 2:20 PM EDT 1. Gallbladder was not visualized by the completion of initial 60 minute dynamic imaging and additional 30 minute dynamic imaging after morphine injection. On SPECT-CT, there is rim of radiotracer uptake corresponding the gallbladder fossa. Findings most likely represent acute cholecystitis. Critical results were communicated and documented using the Alert Notification of Critical Radiology Results (ANCR) system. ATTESTATION: Ebony Galaviz, as teaching physician have reviewed the images, if any, for this patient's exam, and if necessary, have edited the report originally created by Wesley Millan. Narrative 12/18/2020 2:20 PM EDT Reason for exam (per EHR order): * Cholecystitis Additional clinical information obtained from the EHR: 70-year-old male. Right upper quadrant pain. TECHNIQUE: Radiopharmaceutical: Tc-99m mebrofenin. Dose: 5 mCi injected intravenously. Image acquisition: 60-minute dynamic anterior abdominal imaging was performed. Additional Images: After morphine administration, 30-minute dynamic imaging was performed. SPECT-CT of the abdomen was performed following 30 minute dynamic imaging. Pharmacologic agents: Morphine: 2 milligrams given intravenously at 60 minutes post tracer injection. COMPARISON: CT abdomen pelvis performed November 11, 2020. FINDINGS: Prompt and uniform hepatic tracer accumulation is seen. Prompt excretion into the common bile duct is seen. The gallbladder is not visualized by 60 minutes. The gallbladder is not seen within 30 minutes after injection of morphine. Small intestinal excretion is seen from 13 minutes. SPECT-CT performed following 30 minutes of dynamic post-morphine: There is a rim of intrahepatic radiotracer uptake surrounding the gallbladder, without radiotracer uptake within the gallbladder lumen. Distended gallbladder with thickening of the gallbladder wall measuring up to 0.5 cm, with surrounding inflammatory stranding. Cholelithiasis. Incidental findings on SPECT-CT: Mild coronary artery calcifications. Unchanged 1.3 cm left hepatic lobe hypoattenuating lesion, previously characterized as likely hemangioma. Atherosclerotic calcifications of the aorta and branch vessels. Procedure Note Ebony Mei MD - 12/18/2020 Reason for exam (per EHR order): * Cholecystitis Additional clinical information obtained from the EHR: 70-year-old male.Right upper quadrant pain. TECHNIQUE: Radiopharmaceutical: Tc-99m mebrofenin. Dose: 5 mCi injected intravenously. Image acquisition: 60-minute dynamic anterior abdominal imaging wasperformed. Additional Images: After morphine administration, 30-minutedynamic imaging was performed. SPECT-CT of the abdomen was performedfollowing 30 minute dynamic imaging. Pharmacologic agents: Morphine: 2 milligrams given intravenously at 60 minutes posttracer injection. COMPARISON: CT abdomen pelvis performed November 11, 2020. FINDINGS: Prompt and uniform hepatic tracer accumulation is seen. Prompt excretioninto the common bile duct is seen. The gallbladder is not visualized by 60 minutes. The gallbladder is not seen within 30 minutes after injection ofmorphine. Small intestinal excretion is seen from 13 minutes. SPECT-CT performed following 30 minutes of dynamic post-morphine: There is a rim of intrahepatic radiotracer uptake surrounding thegallbladder, without radiotracer uptake within the gallbladder lumen. Distended gallbladder with thickening of the gallbladder wall measuring upto 0.5 cm, with surrounding inflammatory stranding. Cholelithiasis. Incidental findings on SPECT-CT: Mild coronary artery calcifications. Unchanged 1.3 cm left hepatic lobehypoattenuating lesion, previously characterized as likely hemangioma.Atherosclerotic calcifications of the aorta and branch vessels. IMPRESSION: 1. Gallbladder was not visualized by the completion of initial 60 minutedynamic imaging and additional 30 minute dynamic imaging after morphineinjection. On SPECT-CT, there is rim of radiotracer uptake correspondingthe gallbladder fossa. Findings most likely represent acute cholecystitis. Critical results were communicated and documented using the AlertNotification of Critical Radiology Results (ANCR) system. ATTESTATION: Ebony Galaviz, as teaching physician have reviewed theimages, if any, for this patient's exam, and if necessary, have edited thereport originally created by Wesley Millan. us Luiz López MD IMG NM TUMOR LOC Final Result documented in this encounter Visit Diagnoses Diagnosis Calculus of gallbladder with chronic cholecystitis without obstruction Calculus of gallbladder with chronic cholecystitis without obstruction documented in this encounter Additional Health Concerns Infection Onset Date Last Indicated Resolved Time COVID-19 03/03/2021 03/03/2021 03/23/2021 1:21 AM EST documented as of this encounter Care Teams Ticket Collector Relationship Specialty Start Date End Date Roberta Avila MD [address] [address] PCP - General Internal Medicine 07/12/18 Carmelita Gaming MD [address] [place] [address] [email or web address] Medical Oncology 01/18/18 Kim Freeman RN [address] [address] [email or web address] Primary Infusion Nurse 02/02/19 Reynold Bynum MD, [facility] [place] [place] [address] [place] [address] [email or web address] u Pulmonary Disease 04/09/23 documented as of this encounter Additional Source Comments The information contained in this document represents components of the legal health record. It is not the complete legal health record.[facility]
--- OUTSIDE RECORDS SUMMARY | 2025-02-05 14:31 | XMS_ITS ---
Author Organization [facility] Address [address] [place] [address] Phone Care Team Providers Care Labor Mediator Name Role Phone Carmelita Gaming MD Unavailable Roberta Avila MD Primary Care Provider Kim Freeman RN Unavailable [email or web address] [email or web address] AT [facility] Reynold Bynum MD, [facility] Unavailable Active Problems Patient Care Coordination No te Formatting of this note migh t be different from the original. 01/23/2025 An order for a home sleep study has been faxed to [facility] who are scheduling HSTs in March. ZOE Abbott Problem Noted Date Diagnosed Date Chronic cough 05/15/2023 Pulmonary hypertension 05/15/2023 Diastolic dysfunction 05/15/2023 Exercise intolerance 04/28/2023 Dyspnea on exertion 04/12/2023 Obesity (BMI 30-39.9) 04/12/2023 CHRIS (obstructive sleep apnea) 04/12/2023 Lung nodules 04/12/2023 Symptomatic cholelithiasis 01/03/2021 Malignant neoplasm of prostate 12/17/2014 Current Treatment and Therapy Plans No current plan information found. Past Treatment and Therapy Plans No past plan information found. Lifetime Dose Tracking * Chemical Lifetime Dose Automatic Entry Manual Entr y Invasive Cardiology Radiation Exposure 4.59 mGy 0 mGy 4.59 mGy 1. DAP 1,644 mGy-cm2 0 mGy-cm2 1,644 mGy-cm2 Resolved Problems Problem Noted Date Diagnosed Date Resolved Date Subacute cough 04/12/2023 05/15/2023
--- OUTSIDE RECORDS SUMMARY | 2025-02-05 14:31 | XMS_ITS | Encounter Summary ---
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 Procedures NM Cholescintigraphy with Pharmacological Intervention NM Gallbladder Ejection Fraction Luiz López MD Phone: tel: fax: mailto:[email or web address] Referral ID Status Reason Start Date Expiration Date Visits Re quested Visits Authorized [id number] Closed 12/16/2020 12/16/2021 1 1 Encounter Details Date Type Department Care Team (Latest Contact Info) Description 12/18/2020 Ancillary Orders [facility] General & GI Surgery [address] [facility] [address] [place] [address] Luiz López MD 45 [facility] 3rd [place] [address] [email or web address] Calculus of gallbladder with chronic [...] 9:00 AM EST Blood Draw Laboratory Services, [facility] [address] [facility], 2nd [place] [address] Carmelita Gaming MD [address] [place] [address] [email or web address] 05/29/2025 10:00 AM EST Office Visit [facility] Center for Genitourinary Oncology, [facility] [address] [facility], 11th [place] [address] Carmelita Gaming MD [address] [place] [address] [place] [address] [email or web address] 06/08/2025 11:00 AM EST Office Visit [facility] Center for Chest Diseases [address] [place] [address] Reynold Bynum MD, [address] [address] [email or web address] 06/26/2025 7:00 PM EDT Procedure visit [facility] Sleep Lab Home Sleep Apnea Testing Program [address] [place] [address] Reynold Bynum MD, [address] [address] [email or web address]@[email or web address] documented as of this encounter Results * NM Cholescintigraphy with Pharmacological Intervention (12/18/2020 12:39 PM EDT) Anatomical Region Laterality Modality Abdomen, Biliary Nuclear Medicin e 12/18/2020 1:55 PM EDT Impressions 12/18/2020 2:20 PM EDT [...] Millan. 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 Primary Infusion Nurse 02/02/19 Reynold Bynum MD, [facility] [address] [place] [address] [email or web address] u Pulmonary Disease 04/09/23 documented as of this encounter Additional Source Comments The information contained in this document represents components of the legal health record. It is not the complete legal health record.[facility]
--- OUTSIDE RECORDS SUMMARY | 2025-02-05 14:31 | XMS_ITS | Encounter Summary ---
Author Organization [facility] Address [address] [place] [address] Phone Care Team Providers Care Physician Office Rep Name Role Phone Carmelita Gaming MD Unavailable Roberta Avila MD Primary Care Provider Kim Freeman RN Unavailable [email or web address] Reynold Bynum MD, [facility] Un[place] Encounter Details Date Type Department Care Team (Late st Contact Info) Description 04/10/2021 Procedure Pass [facility] Endoscopy Department [address] [place] [address] Social History Tobacco Use Types Packs/Day Years [...] 9:00 AM EST Blood Draw Laboratory Services, [address], 2nd [place] [address] Carmelita Gaming MD [address] [place] [address] [place] [address] [email or web address] 05/29/2025 10:00 AM EST Office Visit [facility] Center for Genitourinary Oncology, [address], 11th [place] [address] Carmelita Gaming MD [address] [place] [address] [facility] [place] [address] Ita@[facility] 06/08/2025 11:00 AM EST Office Visit [facility] - Center for Chest Diseases [address] [place] [address] Reynold Bynum MD, [address] [address] [email or web address] 06/26/2025 7:00 PM EDT Procedure visit [facility] Sleep Lab Home Sleep Apnea Testing Program [address] [place] [address] Reynold Bynum MD, [address] [address] [email or web address] documented as of this encounter Visit Diagnoses Not on filedocumented in this encounter Additional Health Concerns Assessment Noted Time PHQ-2 Depression Total Score: 0 01/15/20 21 3:15 PM EDT documented as of this encounter Care Teams Physician Office Rep Relationship Specialty Start Date End Date Roberta Avila MD [address] [address] PCP - General Internal Medicine 07/12/18 Carmelita Gaming MD [address] [place] [address] [email or web address] Medical Oncology 01/18/18 Kim Freeman RN [address] [address] [email or web address] Primary Infusion Nurse 02/02/19 Reynold Bynum MD, [facility] [address] [place] [address] [email or web address] u Pulmonary Disease 04/09/23 documented as of this encounter Additional Source Comments The information contained in this document represents components of the legal health record. It is not the complete legal health record.[facility]
--- OUTSIDE RECORDS SUMMARY | 2025-02-05 14:31 | XMS_ITS | Clinical Summary ---
Author Organization [facility] Address [address] [place] [address] Phone Care Team Providers Care Patent Prosecution Paralegal Name Role Phone Carmelita Gaming MD Unavailable Roberta Avila MD Primary Care Provider [phone] Kim Freeman RN Unavailable [email or web address] Reynold Bynum MD, [facility] Unavailable [phone] Allergies No known active allergies Medications fluticasone propionate (FLONASE) 50 mcg/actuation nasal spray 1 spray by Nasal route daily. 16 g 3 4 Active Additional Information Patient not taking.Reported on 12/26/2024 mirabegron (MYRBETRIQ) 25 mg [id number]: Urinary urgency Take 1 tablet (25 mg total) by mouth daily. 30 tablet 2 5 Active Additional Information Patient not taking.Reported on 12/26/2024 fluticasone propionate 110 mcg/actuation inhaler Inhale 2 puffs into the lungs 2 (two) times a day. 36 g 3 5 Active azelastine (ASTELIN) 137 mcg (0.1 %) nasal spray 1 spray by Nasal route 2 (two) times a day. Use in each nostril as directed 30 mL 12 Active omeprazole (PRILOSEC) 20 MG capsule Take 1 capsule (20 mg total) by mouth daily. 90 capsule 3 5 Active WEGOVY 0.25 mg/0.5 mL subcutaneous pen injection Inject 0.25 mg under the skin every 7 days. Active empagliflozin (JARDIANCE) 10 mg tabletIndication s:Chronic heart failure with preserved ejection fraction Take 1 tablet (10 mg total) by mouth daily. 90 tablet 3 5 Active Active Problems Patient Care Coordination No te Formatting of this note migh t be different from the original. 01/23/2025 An order for a home sleep study has been faxed to [facility] who are scheduling HSTs in March. Ida Grimm [facility] Problem Noted Date Diagnosed Date Chronic cough 05/15/2023 Pulmonary hypertension 05/15/2023 Diastolic dysfunction 05/15/2023 Exercise intolerance 04/28/2023 Dyspnea on exertion 04/12/2023 Obesity (BMI 30-39.9) 04/12/2023 CHRIS (obstructive sleep apnea) 04/12/2023 Lung nodules 04/12/2023 Symptomatic cholelithiasis 01/03/2021 Malignant neoplasm of prostate 12/17/2014 Resolved Problems Problem Noted Date Diagnosed Date Resolved Date Subacute cough 04/12/2023 05/15/2023 Encounters Date Type Department Care Team Description 01/29/2025 Documentation [facility] [address] [place] [address] Reynold Bynum MD, [facility] 01/24/2025 Telephone [facility] [address] [place] [address] Reynold Bynum MD, [facility] Results; Follow-up 01/23/2025 Orders Only [facility] Thoracic Surgery [address] [place] [address] Reynold Bynum MD, [facility] Pulmonary hypertension (Primary Dx); CHRIS (obstructive sleep apnea); Obesity (BMI 30-39.9) 01/23/2025 Telephone [facility] [address] [place] [address] Reynold Bynum MD, [facility] Sleep study/Annika Campos 01/08/2025 1:00 PM EDT - 01/08/2025 11:59 PM EDT Hospital Encounter [facility] Pulmonary Function Lab [address] [place] [address] Reynold Bynum MD, [facility] Discharge Disposition: Home or Self Care 12/26/2024 4:21 PM EDT - 12/26/2024 11:59 PM EDT Hospital Encounter [facility] Phlebotomy, [address] [address] Reynold Bynum MD, [facility] Discharge Disposition: Home or Self Care 12/26/2024 3:20 PM EDT Office Visit [facility] Pulmonary Medicine Hypertension [address] [place] [address] Reynold Bynum MD, [facility] Dyspnea on exertion (Primary Dx); Chronic heart failure with preserved ejection fraction; CHRIS (obstructive sleep apnea); Obesity (BMI 30-39.9); Chronic cough; Lung nodules 11/16/2024 Telephone [facility] Pulmonary Medicine Hypertension [address] [place] [address] Reynold Bynum MD, [facility] ANNIKA NEELY/ADVICE from Last 3 Months Immunizations Immunization Administration Dates Next Due Influenza High-Dose Quadrivalent Preservative Fr ee IM 01/10/2021 Influenza High-Dose Trivalent Preservative Free IM 01/10/2019,01/18/2018 Influenza, Unspecified Formulation 02/03/2006 Social History Tobacco Use Types Packs/Day Years Used Date Smoking Tobacco: Former Cigarettes Q uit: 04/10/1978 Smokeless Tobacco: Never Tobacco Cessation:Counseling Given: Not Answered Comments:Smoking History Packs/day: <=0.5 Alcohol Use Standard Drinks/Week Comments Yes [...] Orientation Straight 04/07/2021 4: 15 PM EST Last Filed Vital Signs Vital Sign Reading Time Taken Comments Blood Pressure 144/72 12/26/2024 3:11 PM EDT Pulse 62 12/26/2024 3:11 PM EDT Temperature 36.5 C (97.7 F) 05/29/2024 10:45 AM EST Respiratory Rate 18 05/29/2024 10:4 5 AM EST Oxygen Saturation 97% 12/26/2024 3:1 1 PM EDT Inhaled Oxygen Concentration - - Weight 95.1 kg (209 lb 11.2 oz) 025 3:11 PM EDT with shoes Height 170.9 cm (5' 7.28 ) 05/29/2024 1 0:45 AM EST Body Mass Index 32.57 05/29/2024 10:45 AM EST Plan of Treatment Upcoming Encounters Date Type Department Care Team (Late st Contact Info) Description 05/29/2025 9:00 AM EST Blood Draw Laboratory Services, [facility] [address] [place] [address], 2nd [place] [address] Carmelita Gaming MD [address] [place] [address] [email or web address] 05/29/2025 10:00 AM EST Office [facility], [facility] [address] [facility], 11th [place] [address] Carmelita Gaming MD [address] [place] [address] [email or web address] 06/08/2025 11:00 AM EST Office Visit [facility] [address] [place] [address] Reynold Bynum MD, [address] [address] [email or web address] 06/26/2025 7:00 PM EDT Procedure visit [facility] Sleep Lab Home Sleep Apnea Testing Program [address] [facility] 2nd [place] [address] Reynold Bynum MD, [address] [address] [email or web address] Health Maintenance Due Date Last Done Comments LIPID PANEL 1948 HEPATITIS C SCREENING 1966 ZOSTER VACCINES (1 of 2) 06/25/1967 DEPRESSION SCREENING 01/14/2022 01/14/2021 RSV VACCINE (1 - 1-dose 75+ series) 06/25/2023 INFLUENZA VACCINE (#1) 2024 , 02/08/2020, 01/10/2019, Additional history exists COVID-19 VACCINE ( season) 2024 06/12/2020, 05/21/2020 SMOKING Hx and SMOKELESS TOBACCO SCREENING 12/26/2025 12/26/2024 Adult Td,Tdap Booster 06/09/2034 06/09/2024 , 01/05/2020, 08/12/2007 PNEUMOCOCCAL VACCINES (50+ years) Completed 09/21/2017, 08/13/2015 HEPATITIS A VACCINES Aged Out No long er eligible based on patient's age to complete this topic HIB VACCINES Aged Out No longer eligi ble based on patient's age to complete this topic MENINGOCOCCAL VACCINES (ACWY) Aged Out No longer eligible based on patient's age to complete this topic MENINGOCOCCAL VACCINES (B) Aged Out N o longer eligible based on patient's age to complete this topic Medical Devices Explanted Type Area Appliance Servicer Device Identifier Shelf Expiration Date Model / Serial / Lot Stent Wallflex 8.5fr 10mm 40mm .035in Rx Biliary Silicone Fully Covered Self-Exp Guidewire Compat - [id number] Implanted:Qty : 1 on 01/08/2021 by Cookie Ndiaye MD at [facility] STANDARD Bile Duct [employer] [id number] 08/12/2022 [id number] / [id number] Stent Advanix 10fr 7cm .035in Rx Biliary [place] Preloaded - [id number] Implanted:Qty : 1 on 01/05/2021 by Eduardo Rodriguez MD, MPH at [facility] Explanted:Qty : 1 on 01/08/2021 at [facility] Bile Duct [employer] [id number] 10/28/2022 [id number] 0 / [id number] / [id number] Stent Advanix 5fr 3cm Pancreatic Straight Leading Michelle Trailing Radiopaque Marker - [id number] Implanted:Qty : 1 on 01/05/2021 by Eduardo Rodriguez MD, MPH at [facility] Explanted:Qty : 1 on 01/08/2021 by Cookie Ndiaye MD at [facility] Pancreas 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 Procedures Procedure Name Priority Date/Time Associated Diagnosis Comments HC BRNCDILAT RSPSE SPMTRY PRE&POST-BRNCDILAT ADMN Routine 01/08/2025 12:00 AM EDT Dyspnea on exertion CBC Routine 12/26/2024 4:26 PM EDT Dyspnea on exertion FERRITIN Routine 12/26/2024 4:26 PM EDT Dyspnea on exertion IRON AND IRON BINDING CAPACITY Routine 12/26/2024 4:26 PM EDT Dyspnea on exertion NT-PROBNP Routine 12/26/2024 4:26 PM EDT Dyspnea on exertion from Last 3 Months Results * Pulmonary Function Test Reason for Exam: Dyspnea/Shortness of Breath; Type of PFT Test: Spirometry with bronchodilator, DLCO, Lung Volumes; Additional Testing: Exhaled Nitric Oxide Test ([facility], [facility], [facility], [facility] and [facility] only); Performing Location: ... (01/08/2025 12:00 AM EDT) Anatomical Region Laterality Modality Other 01/08/2025 Narrative 01/08/2025 12:00 AM EDT Overhead Crane Inspector Notes: Two Patient Identifiers (Name, ) used to identify patient. If applicable-How many hours since the patient took a short acting bronchodilator? N/A If applicable - How many hours since the patient took a long acting bronchodilator? Fluticasone propionate at 7:00am Good patient effort throughout PFT testing, data is acceptable and reproducible according to ATS guidelines. Albuterol given as ordered. Demonstration/evaluation of nebulizer performed with patient prior to and throughout the administration of medication. FeNo 11ppb. A better SVC was attempted separately. Exercise O2 Titration: Exercise was done on RA. Pt walked on a flat platform surface area setting his own pace, pt tolerated well. Very good effort throughout the test. -Starting HR and Saturation: 64 bpm, 99% -Distance walked: 200 meters -SpO2 on Room Air at REST: 99% -SpO2 on Room Air with EXERTION: 96% -Maximum HR, minimum Saturation during walk: 84 bpm, 96% -Ending HR, Saturation: 84 bpm, 98% -Oxygen titration performed? no -If yes, supplemental oxygen required to maintain saturation >88% (L/min): N/A Six Minute Walk Test: Very good effort throughout six minute walk test. Patient was able to walk for the full six minutes without stopping. Total distance measured was 390 meters. No visible signs of shortness of breath, diaphoresis, nor chest discomfort noted. (Pre-exercise)Zackery Score: 0 (Post-exercise) Zackery Score: 0. Please see flowsheet for more information. Physician Interpretation: FEV1, FVC, and FEV1/VC are within normal limits. TLC is normal. Diffusion is normal. IMPRESSION: FEV1/VC, VC, TLC and DLCO are within normal limits indicating a normal study. There was not a significant response to inhaled bronchodilator The exhaled FeNO is low (<25ppb) at 11 ppb, which suggests a low likelihood of eosinophilic inflammation or further responsiveness to corticosteroids. 6-Minutes Walk Test The 6-Minutes walking distance was normal at 390 meters or 89% of predicted on room air with the lowest saturation of 99%. Reynold Neely MD, [facility] PFT ORDERABLES Final Result * Iron and iron binding capacity (12/26/2024 4:26 PM EDT) Pathologist [facility] IRON 92 37 - 158 ug/dL [facility] Comment: IRON BINDING CAPACITY 251 220 - 460 ug/dL [facility] Comment: TRANSFERRIN SATURAT. 37 14 - 50 % [facility] Comment: Blood 12/26/2024 4:26 PM EDT 12/26/2024 4:31 PM EDT Reynold Neely MD, [facility] LAB BLOOD BKR ORDERABL ES Final Result [facility] [address] [place] [address] * (ABNORMAL) CBC (12/26/2024 4:26 PM EDT) WBC 7.18 4.00 - 11.00 K/uL [facility] RBC 6.39(H) 4.50 - 5.90 M/uL [facility] HGB 12.4(L) 13.5 - 17.5 g/dL [facility] HCT 41.3 41.0 - 53.0 % [facility] PLT 224 150 - 450 K/uL [facility] MCV 64.6(L) 80.0 - 100.0 fL [facility] MCH 19.4(L) 27.0 - 31.0 pg [facility] MCHC 30.0(L) 32.0 - 36.0 g/dL [facility] RDW 19.1(H) 11.5 - 14.5 % [facility] MPV 9.5 8.4 - 12.0 fL [facility] NRBC 0.00 0.00 /100 WBCs [facility] ABSOLUTE NRBC 0.00 0.00 K/uL [facility] Blood 12/26/2024 4:26 PM EDT 12/26/2024 4:31 PM EDT us Reynold Neely MD, [facility] LAB BLOOD BKR ORDERABL ES Final Result Performing Organization Address [facility] Co de Phone Number [facility] [address] [place] [address] * NT-proBNP (12/26/2024 4:26 PM EDT) NT-PROBNP 80 <1,800 pg/mL [facility] Comment: Blood 12/26/2024 4:26 PM EDT 12/26/2024 4:31 PM EDT us Reynold Neely MD, [facility] LAB BLOOD BKR ORDERABL ES Final Result Performing Organization Address [facility] Co de Phone Number [facility] [address] [place] [address] * Ferritin (12/26/2024 4:26 PM EDT) FERRITIN 246 20 - 300 ug/L [facility] Comment: Blood 12/26/2024 4:26 PM EDT 12/26/2024 4:31 PM EDT us Reynold Neely MD, [facility] LAB BLOOD BKR ORDERABL ES Final Result Performing Organization Address City/State/[facility] Co de Phone Number [facility] [address] [place] [address] from Last 3 Months Insurance [employer] SUPPLEMENT MEDICARE PART A & B [employer] SUPP[employer] MEDICARE PART A & B MEDICARE PART A & B [employer] SUPPLEMENT MEDICARE PART A & B [facility] MEDEX SUPPLEMENT MEDICARE PART A & B [employer] SUPPLEMENT MEDICARE PART A & B [employer] SUPPLEMENT MEDICARE PART A & B [employer] SUPPLEMENT MEDICARE PART A & B [employer] SUPPLEMENT MEDICARE PART A & B Care Teams Patent Prosecution Paralegal Relationship Specialty Start Date End Date Roberta Avila MD [address] [address] PCP - General Internal Medicine 07/12/18 Carmelita Gaming MD [address] [place] [address] [email or web address] Medical Oncology 01/18/18 Kim Freeman, RN [address] [address] [email or web address] Primary Infusion Nurse 02/02/19 Reynold Bynum MD, [facility] [address] [place] [phone] [email or web address] u Pulmonary Disease 04/09/23 Additional Source Comments The information contained in this document represents components of the legal health record. It is not the complete legal health record.[facility]
--- OUTSIDE RECORDS SUMMARY | 2025-02-05 14:32 | XMS_ITS | Encounter Summary ---
Author Organization [facility] Address [address] [place] [address] Phone Care Team Providers Care Flash Ranging Crewmember Name Role Phone Carmelita Gaming MD Unavailable Roberta Avila MD Primary Care Provider Kim Freeman RN Unavailable [email or web address] Reynold Bynum MD, [facility] Unavailable Encounter Details Date Type Department Care Team (Latest Contact Info) Description 12/18/[address] [facility] General & GI Surgery [address] [facility] [place] [address] Luiz López MD [address] [place] [address] 3rd [place] [address] [email or web address] Calculus of gallbladder with chronic cholecystitis without [...] 9:00 AM EST Blood Draw Laboratory Services, [address], 2nd [place] [address] Carmelita Gaming MD [address] [facility] [address] [place] [address] [email or web address] 05/29/2025 10:00 AM EST Office Visit [facility] Genitourinary Oncology, [address], 11th [place] [address] Carmelita Gaming MD [address] [place] [address] 1230 [address] [place] [address] [email or web address] 06/08/2025 11:00 AM EST Office Visit [facility] Diseases [address] [place] [address] Reynold Bynum MD, [address] [address] [email or web address] 06/26/2025 7:00 PM EDT Procedure visit [facility] Sleep Lab Home Sleep Apnea Testing Program [address] [address] Reynold Bynum MD, [address] [address] [email or web address] documented as of this encounter Visit Diagnoses Diagnosis Calculus of gallbladder with chronic cholecystitis without obstruction documented in this encounter Additional Health Concerns Infection Onset Date Last Indicated Resolved Time COVID-19 03/03/2021 03/03/2021 03/23/2021 1:21 AM EST documented as of this encounter Care Teams Flash Ranging Crewmember Relationship Specialty Start Date End Date Roberta Avila MD [address] [address] PCP - General Internal Medicine 07/12/18 [place]ita Gaming MD [address] [place] [address] [email or web address] Medical Oncology 01/18/18 Kim Freeman RN [address] [address] [email or web address] Primary Infusion Nurse 02/02/19 Reynold Bynum MD, [facility] [address] [place] [address] [email or web address] Pulmonary Disease 04/09/23 documented as of this encounter Additional Source Comments The information contained in this document represents components of the legal health record. It is not the complete legal health record.[facility]
--- OUTSIDE RECORDS SUMMARY | 2025-02-05 14:32 | XMS_ITS | Encounter Summary ---
Author Organization [facility] Address [address] [place] [address] Phone Care Team Providers Care Plastic Sheeting Cutter Name Role Phone Carmelita Gaming MD Unavailable Roberta Avila MD Primary Care Provider Kim Freeman RN Unavailable YAIMA [email or web address] Reynold Bynum MD, [facility] Unavailable [phone] Reason for Visit * Reason Onset Date Comments ANNIKA NEELY/VIDAL 11/16/2024 Encounter Details Date Type Department Care Team (Late st Contact Info) Description 11/16/2024 Telephone [facility] Pulmonary Medicine Hypertension [address] [place] [address] Reynold Bynum MD, [facility] [address] [place] [address] [email or web address] ANNIKA NEELY/VIDAL Social History Tobacco Use Types Packs/Day Years [...] PM EST documented as of this encounter Progress Notes * Nessa Villeda - 11/16/2024 3:30 PM EDT Hi, Patient of Dr. Reynold Neely The patient had a Comprehensive Echo on 05/13/2023. He would like to know if he should be seeing a intermediate project manager due to the results. Please advise. [facility]# [phone] Thanks, Nessa Dave Patient Fire Captain Department of Medicine documented in this encounter Plan of Treatment Upcoming Encounters Date Type Department Care Team (Late st Contact Info) Description 05/29/2025 9:00 AM EST Blood Draw Laboratory Services, [address], 2nd [place] [address] Carmelita Gaming MD [address] [place] [address] [place] [address] [email or web address] 05/29/2025 10:00 AM EST Office Visit [facility], [facility] [address], 11th [place] [address] Carmelita Gaming MD [address] [address] [email or web address] 06/08/2025 11:00 AM EST Office Visit [facility] Center for Chest Diseases [address] [place] [address] Reynold Bynum MD, [address] [address] [email or web address] 06/26/2025 7:00 PM EDT Procedure visit [facility] Sleep Lab Home Sleep Apnea Testing Program [address] [place] [address] Reynold Bynum MD, [address] [address] [email or web address]@[email or web address] documented as of this encounter Visit Diagnoses Not on filedocumented in this encounter Additional Health Concerns Assessment Noted Time PHQ-2 Depression Total Score: 0 01/15/20 21 3:15 PM EDT documented as of this encounter Care Teams Plastic Sheeting Cutter Relationship Specialty Start Date End Date Roberta Avila MD [address] [address] PCP - General Internal Medicine 07/12/18 Carmelita Gaming MD [address] [address] [email or web address] Medical Oncology 01/18/18 Kim Freeman RN [address] [address] [email or web address] Primary Infusion Nurse 02/02/19 Reynold Bynum MD, [facility] [address] [place] [address] [email or web address] Pulmonary Disease 04/09/23 documented as of this encounter Additional Source Comments The information contained in this document represents components of the legal health record. It is not the complete legal health record.[facility]
--- OUTSIDE RECORDS SUMMARY | 2025-02-05 14:32 | XMS_ITS ---
Author Name [facility] Organization Unknown Care Team Organization Name Specialty Phone Email Start Date End Da te [facility] NULL Primary Care 12/12/2024 [facility] DarshanPascualGranados Primary Care 05/07/2024 [facility] Margarita Granados Primary Care 12/10/2022
--- OUTSIDE RECORDS SUMMARY | 2025-02-05 14:33 | XMS_ITS | Encounter Summary ---
Author Organization [facility] Address [address] [place] [id number] Phone Care Team Providers Care Food And Nutrition Professor Name Role Phone Carmelita Gaming MD Unavailable Roberta Avila MD Primary Care Provider [phone] Kim Freeman RN Unavailable [email or web address] Reynold Bynum MD, [facility] Unavailable [phone] Reason for Visit * Reason Onset Date Comments Results 01/24/2025 Follow-up 01/24/2025 Encounter Details Date Type Department Care Team (Late st Contact Info) Description 01/24/2025 Telephone [facility] [address] [place] [id number] Reynold Bynum MD, [address] [address] [email or web address] Results; Follow-up Social History Tobacco Use Types Packs/Day Years [...] as of this encounter Progress Notes * James Beckwith - 01/26/2025 10:48 AM EDT Patient return-called provider at 10:48 (no related TE from provider found.) # [phone] Thank you. Doug * James Beckwith - 01/24/2025 3:42 PM EDT (Agent use only): (Confirm you are using the correct EPIC Department - if not, change department before proceeding) (Is the patient enrolled in gateway? Did the patient check to see if results are posted in [place]) Caller name: Henrik Villegas Patient name: Henrik Villegas Type of results you are looking for:PFT results Name of test: Pulmonary Function Test Date of Test: 01/08/2025 Location of Test: [facility] Ordering Provider: Reynold Bynum MD, [facility] (Agent use only) Please note: (Do not take critical test results - refer the caller to the [facility] page carbon sequestration plant operator) (Do not send requests for test results through the Active Symptom chats) All requests should go as a telephone encounter to the appropriate nurse pool. Patient of Reynold Bynum MD, [facility] Intensive Care Patient also would like to speak to provider about another treatment option that was discussed in last OV but for which he cannot recall name of. # [phone] Thank you. Doug documented in this encounter Plan of Treatment Upcoming Encounters Date Type Department Care Team (Late st Contact Info) Description 05/29/2025 9:00 AM EST Blood Draw Laboratory Services, [address] [place] [address] Carmelita Gaming MD [address] [place] [id number] [email or web address] 05/29/2025 10:00 AM EST Office Visit [facility], [address] [place] [address] Carmelita Gaming MD [address] [place] [id number] [email or web address] 06/08/2025 11:00 AM EST Office Visit [facility] [address] [place] [address] Reynold Bynum MD, [address] [address] [email or web address] 06/26/2025 7:00 PM EDT Procedure visit [facility] Sleep Lab Home Sleep Apnea Testing Program [address] [facility] [address] [place] [address] Reynold Bynum MD, [address] [address] [email or web address] documented as of this encounter Visit Diagnoses Not on filedocumented in this encounter Additional Health Concerns Assessment Noted Time PHQ-2 Depression Total Score: 0 01/15/20 21 3:15 PM EDT documented as of this encounter Care Teams Food And Nutrition Professor Relationship Specialty Start Date End Date Roberta Avila MD [address] [address] PCP - General Internal Medicine 07/12/18 Carmelita Gaming MD [address] [place] [id number] [email or web address] 01/18/18 Kim Freeman RN [address] [id number] [email or web address] Primary Infusion Nurse 02/02/19 Reynold Bynum MD, [facility] [address] [place] [id number] [email or web address] Pulmonary Disease 04/09/23 documented as of this encounter Additional Source Comments The information contained in this document represents components of the legal health record. It is not the complete legal health record.[facility]
--- OUTSIDE RECORDS SUMMARY | 2025-02-05 14:33 | XMS_ITS | Data Portability ---
Author Organization 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 Plan of Treatment Reminders Order Date Submit Date Provider Last Modified By Organization Details Last Modified Time Details Appointments None recorde d. Lab HbA1c (hemogl obin A1c), blood 2017 018 abigby [facility], [address], [address], [place], [address], 9 10:08:32 BMP, serum or plasma 2017 018 CHRIS [facility], [address], [address], [place], [address], 8 17:52:07 hepatit is C virus Ab, serum 2017 018 abigby [facility], [address], [address], [place], [address], 9 10:08:32 ige, total, serum 2016 017 CHRIS [facility], [address], [address], [place], [address], 7 20:14:14 CBC w/ auto diff 2016 017 CHRIS [facility], [address], [address], [place], [address], 7 14:45:02 lipid panel, serum 2016 017 abigby [facility], [address], [address], [place], [address], 8 14:28:50 ALT (alanin e aminotr ansfera se), serum or plasma 2016 017 abigby [facility], [address], [address], [place], [address], 8 14:28:50 AST/SGO T (aspart ate aminotr ansfera se), serum or plasma 2016 017 abigby [facility], [address], [address], [place], [address], 8 14:28:51 BMP, serum or plasma 2016 017 abigby [facility], [address], [place], [address], 8 14:28:51 HbA1c (hemogl obin A1c), blood 2015 016 CHRIS Not available 6 17:28:03 Referral physica l therapi st referra l - At risk for falling 2016 017 abigby Not available 7 15:59:07 nutriti onist/d ietitia n referra l 2016 017 [email or web address] Not available 7 12:16:04 Procedures None recorde d. Surgeries None recorde d. Imaging XR, chest, 2 view 2016 017 [facility], [address] [place], [address], 7 14:12:29 Medication Orders prednis one 20 mg tablet 2016 017 [facility] #[id number], [address] [place] [address], [address], 8 09:15:09 cetiriz ine 10 mg tablet 2016 017 [id number], [address] [place] [address], [address], 8 09:32:21 ProAir HFA 90 mcg/act uation aerosol inhaler 2016 017 [facility] #[id number], [address] [place] [address], [address], 7 12:15:13 Guaifen esin AC 10 mg-100 mg/5 mL oral liquid 2016 017 CHRIS Not available 2 09:26:56 Patient TargetsNo targets recorded. Patient Instructions Encounter Date Encounter Id Patient Instructions Last Modified By Organization Details Last Modified Time 08/13/2015 [id number] Medications (OTC, herbal therapies, supplements) reviewed and reconciled with patient and or caregiver, including potential side effects, drug interactions, instructions, and the consequences of not taking medication. Reviewed potential barriers to medication adherence, such as side effects from medication or cost of medication. [email or web address] Not available 08/13/2015 10:37:59 09/15/2016 [id number] preventing falls: care instructions [email or web address] Not available 09/15/2016 11:17:32 Starting a Weight-Loss Plan: Care Instructions [email or web address] Not available 09/15/2016 11:17:32 Nutrition Referral and Weight Management Follow-up Information [email or web address] Not available 09/15/2016 11:18:25 12/30/2016 [id number] wheezing or bronchoconstrict ion: care instructions [email or web address] Not available 12/30/2016 12:22:11 cough: care instructions [email or web address] Not available 12/30/2016 12:22:10 upper respiratory infection (cold): care instructions [email or web address] Not available 12/30/2016 12:22:10 saline nasal washes: care instructions ckrym Not available 12/30/2016 12:22:11 rec. albuterol 1-2 puffs 3x/day x 3 days, then use every 4 hours as needed for shortness of breath / coughing fits. also rec. otc robitussin or mucinex by day -- but take Kiel AC at bedtime [email or web address] Not available 12/30/2016 12:02:56 Follow up if no improvement or if symptoms worsen. Discussed side effects of opiates. Caution driving, careful for falls, fiber supplement if constipation, option to fill at lesser amount than prescribed. Patient understands. I have reviewed the note and agree with the assessment and plan of care. 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 Refer ral for Body mass index 30+ - obesity Referring Physician: Jon Urrutia, Internal Medicine, Encounter Date: 09/15/2016 Results Created Date Observation Date Name Description Value Unit Range Abnormal Flag Note LastModifiedBy Organization Detail LastModifiedTime 08/13/19 16 08/13/2015 HbA1c (hemo globi n A1c), blood hemoglobin A1C 5.1 % (4-6) HEMOG LOBIN A1C(% ) GLUCO SE CONTR OL INDEX <6% EXCEL LENT 6-7% VERY GOOD 7-8% GOOD 8-10% FAIR >10% POOR Effec tive Augus t 2014, the metho d for measu remen t of hemog lobin (Hb) A1c has been woods ed from ion excha nge chrom atogr aphy to immun oassa y. Any cause of short ened eryth rocyt e survi salma will reduc e expos ure of eryth rocyt es to gluco se with a conse quent decre ase in Hb A1c (%). Cause s of short ened eryth rocyt e lifet teresita might be hemol ytic anemi a or other hemol ytic disea ses, prese nce of homoz ygous forms of abnor mal Hb (eg, SS, CC, SC), pregn theresa, or recen t signi fican t or chron ic blood loss. Speci mens conta ining Hb F highe r than 10 perce nt of total Hb may resul t in lower than expec mychal % Hb A1c. Not Available [facility] (Centralized Electronic Ordering - All Locations) Patient Can Go To The Location Of Their Choice, [id number] 08/13/2015 17:28:03 02/12/2002/11/2017 CBC w/ auto diff WBC 6.9 K/mm3 (4.0-1 1.0) Not Available [facility] (Centralized Electronic Ordering - All Locations) Patient Can Go To The Location Of Their Choice, [id number] 02/11/2017 14:45:02 02/12/2002/11/2017 CBC w/ auto diff RBC 6.21 M/mm3 (4.70- 6.10) high Not Available [facility] (Centralized Electronic Ordering - All Locations) Patient Can Go To The Location Of Their Choice, [id number] 02/11/2017 14:45:02 02/12/2002/11/2017 CBC w/ auto diff HGB 12.2 gm/dL (14.0- 18.0) low Not Available [facility] (Centralized Electronic Ordering - All Locations) Patient Can Go To The Location Of Their Choice, 02/11/2017 14:45:02 02/12/2002/11/2017 CBC w/ auto diff HCT 39.6 % (42.0- 52.0) low Not Available [facility] (Centralized Electronic Ordering - All Locations) Patient Can Go To The Location Of Their Choice, 02/11/2017 14:45:02 02/12/2002/11/2017 CBC w/ auto diff MCV 63.8 fL (80.0- 94.0) low Not Available [facility] (Centralized Electronic Ordering - All Locations) Patient Can Go To The Location Of Their Choice, [id number] 02/11/2017 14:45:02 02/12/20 17 02/11/2017 CBC w/ auto diff MCH 19.6 pg (27.0- 34.0) low Not Available [facility] (Centralized Electronic Ordering - All Locations) Patient Can Go To The Location Of Their Choice, 02/11/2017 14:45:02 02/12/20 17 02/11/2017 CBC w/ auto diff MCHC 30.8 g/dL (33.0- 37.0) low Not Available [facility] (Centralized Electronic Ordering - All Locations) Patient Can Go To The Location Of Their Choice, 02/11/2017 14:45:02 02/12/20 17 02/11/2017 CBC w/ auto diff plt 185 K/mm3 (150-4 60) Not Available [facility] (Centralized Electronic Ordering - All Locations) Patient Can Go To The Location Of Their Choice, 02/11/2017 14:45:02 02/12/20 17 02/11/2017 CBC w/ auto diff RDW-SD 36.8 fL (<47.0 ) Not Available [facility] (Centralized Electronic Ordering - All Locations) Patient Can Go To The Location Of Their Choice, 02/11/2017 14:45:02 02/12/2002/11/2017 CBC w/ auto diff MPV 10.3 fL (9.4-1 2.4) Not Available [facility] (Centralized Electronic Ordering - All Locations) Patient Can Go To The Location Of Their Choice, 02/11/2017 14:45:02 02/12/20 17 02/11/2017 CBC w/ auto diff automated NRBC 0.0 #/100 _WBC' s Not Available [facility] (Centralized Electronic Ordering - All Locations) Patient Can Go To The Location Of Their Choice, 02/11/2017 14:45:02 02/12/2002/11/2017 CBC w/ auto diff abs. NRBC 0.0 K/mm3 Not Available [facility] (Centralized Electronic Ordering - All Locations) Patient Can Go To The Location Of Their Choice, 02/11/2017 14:45:02 02/12/20 17 02/11/2017 ige, total , serum immunoglobul in IgE 401 IU/mL (0-199 ) high Not Available [facility] (Centralized Electronic Ordering - All Locations) Patient Can Go To The Location Of Their Choice, [id number] 02/11/2017 20:14:14 12/23/1912/22/2017 ALT (mack ine amino trans feras e), serum or plasm a ALT 20 U/L (0-41) Not Available [facility] (Centralized Electronic Ordering - All Locations) Patient Can Go To The Location Of Their Choice, 12/22/2017 17:52:05 12/23/1912/22/2017 AST/S GOT (aspa rtate amino trans feras e), serum or plasm a AST 19 U/L (0-38) Not Available [facility] (Centralized Electronic Ordering - All Locations) Patient Can Go To The Location Of Their Choice, 12/22/2017 17:52:06 12/23/1912/22/2017 BMP, serum or plasm a glucose 107 mg/dL (70-99 ) high Not Available [facility] (Centralized Electronic Ordering - All Locations) Patient Can Go To The Location Of Their Choice, 12/22/2017 17:52:07 12/23/1912/22/2017 BMP, serum or plasm a BUN 16 mg/dL (8-23) Not Available [facility] (Centralized Electronic Ordering - All Locations) Patient Can Go To The Location Of Their Choice, 12/22/2017 17:52:07 12/23/1912/22/2017 BMP, serum or plasm a creatinine 0.9 mg/dL (0.7-1 .2) Not Available [facility] (Centralized Electronic Ordering - All Locations) Patient Can Go To The Location Of Their Choice, 12/22/2017 17:52:07 12/23/1912/22/2017 BMP, serum or plasm a sodium 144 mmol/ L (133-1 45) Not Available [facility] (Centralized Electronic Ordering - All Locations) Patient Can Go To The Location Of Their Choice, 12/22/2017 17:52:12/23/1912/22/2017 BMP, serum or plasm a potassium 4.6 mmol/ L (3.6-5 .2) Not Available [facility] (Centralized Electronic Ordering - All Locations) Patient Can Go To The Location Of Their Choice, 12/22/2017 17:52:12/23/1912/22/2017 BMP, serum or plasm a chloride 105 mmol/ L (98-10 7) Not Available [facility] (Centralized Electronic Ordering - All Locations) Patient Can Go To The Location Of Their Choice, 12/22/2017 17:52:12/23/1912/22/2017 BMP, serum or plasm a bicarbonate 26 mmol/ L (22-29 ) Not Available [facility] (Centralized Electronic Ordering - All Locations) Patient Can Go To The Location Of Their Choice, 12/22/2017 17:52:12/23/1912/22/2017 BMP, serum or plasm a anion gap 13 (4-17) Not Available [facility] (Centralized Electronic Ordering - All Locations) Patient Can Go To The Location Of Their Choice, 12/22/2017 17:52:12/23/1912/22/2017 BMP, serum or plasm a calcium 9.1 mg/dL (8.6-1 0.5) Not Available [facility] (Centralized Electronic Ordering - All Locations) Patient Can Go To The Location Of Their Choice, 12/22/2017 17:52:12/23/1912/22/2017 BMP, serum or plasm a est GFR non 87 mL/mi n/1.7 3_M2 Creat inine based estim ated glome rular filtr ation rate (eGFR ) is calcu lated using the Chron ic Kidne y Disea se Epide miolo gy Colla borat ion (CKD- EPI). The CKD-E PI creat inine equat ion has not been valid ated in child lucien (<18 years ), pregn ant women or in some racia l or ethni c subgr oups other than Cauca sians and Afric an Ameri cans. Not Available [facility] (Centralized Electronic Ordering - All Locations) Patient Can Go To The Location Of Their Choice, 12/22/2017 17:52:12/23/1912/22/2017 BMP, serum or plasm a est GFR 101 mL/mi n/1.7 3_M2 Creat inine based estim ated glome rular filtr ation rate (eGFR ) is calcu lated using the Chron ic Kidne y Disea se Epide miolo gy Colla borat ion (CKD- EPI). The CKD-E PI harrison juárez ion has not been valid ated in child lucien (<18 years ), pregn ant women or in some racia l or ethni c subgr oups other than Cauca sians and Afric an Ameri cans. Not Available [facility] (Centralized Electronic Ordering - All Locations) Patient Can Go To The Location Of Their Choice, 12/22/2017 17:52:07 12/23/1912/22/2017 lipid panel , serum cholesterol, total 196 mg/dL (<200) Not Available [facility] (Centralized Electronic Ordering - All Locations) Patient Can Go To The Location Of Their Choice, 12/22/2017 17:52:08 12/23/1912/22/2017 lipid panel , serum triglyceride 123 mg/dL (<150) Not Available [facility] (Centralized Electronic Ordering - All Locations) Patient Can Go To The Location Of Their Choice, 12/22/2017 17:52:08 12/23/1912/22/2017 lipid panel , serum HDL chol 55 mg/dL (>39) Not Available [facility] (Centralized Electronic Ordering - All Locations) Patient Can Go To The Location Of Their Choice, 12/22/2017 17:52:08 12/23/1912/22/2017 lipid panel , serum LDL cholesterol, calculated 116 mg/dL (0-130 ) Not Available [facility] (Centralized Electronic Ordering - All Locations) Patient Can Go To The Location Of Their Choice, 12/22/2017 17:52:08 12/23/1912/22/2017 lipid panel , serum non HDL cholesterol (calc) 141 mg/dL (<160) Not Available [facility] (Centralized Electronic Ordering - All Locations) Patient Can Go To The Location Of Their Choice, 12/22/2017 17:52:12/31/1912/30/2016 XR, chest , 2 view Chest 2 Views Fronta l and Lat INDICA TION/C LINICA L QUESTI ON: cough / . COMPAR JD: July 08, 2011 FINDIN GS: LINES AND TUBES: None. LUNGS AND PLEURA : The lungs are clear and the pulmon beka vascul arity is normal . No effusi on or pneumo thorax . HEART, MEDIAS TINUM AND WILTON: Normal . BONES AND SOFT TISSUE S: No acute abnorm ality. IMPRES CRYSTAL: No acute abnorm ality. WSN: [id number] Dictat ed By: Jimbo Martínez MD Dictat ed Date/T teresita: 2:09 pm Review ed By: Jimbo Martínez MD Signed By: Jimbo Martínez MD Signed Date/T teresita: 2:09 pm Transc ribed By: PHANI Transc ribed Date/T teresita: 2:09 pm Patien t Class: Outpat ient [facility] (Outpt Imaging) [address], [place], [address], 12/31/2016 06:47:01 05/27/19 18 05/26/2017 MRI, knee, w/o contr ast No observ ation record ed. [facility] [address], [place], [address], 05/27/2017 12:55:23 Result Notes Documentation Provider Name and Address Organization Details Recorded Time Xr, Chest, 2 View : Chest 2 Views Frontal and Lat INDICATION/CLINICAL QUESTION: cough / . COMPARISON: July 08, 2011 FINDINGS: LINES AND TUBES: None. LUNGS AND PLEURA: The lungs are clear and the pulmonary vascularity is normal. No effusion or pneumothorax. HEART, MEDIASTINUM AND WILTON: Normal. BONES AND SOFT TISSUES: No acute abnormality. IMPRESSION: No acute abnormality. WSN: [id number] Dictated By: Jimbo Martínez MD Dictated Date/Time: 12/30/16 2:09 pm Reviewed By: Jimbo Martínez MD Signed By: Jimbo Martínez MD Signed Date/Time: 12/30/16 2:09 pm Transcribed By: PHANI Transcribed Date/Time: 12/30/16 2:09 pm Patient Class: Outpatient Ayush Zepeda PA-C [address], [place], [address], [facility] 12/30/2016 16:57:42 Problems Name Problem SNOMED Code Status Onset Date Resolution Date Notes Provider Name and Address Organization Details Recorded Time Benign paroxysm al position al vertigo [id number] Davion albarran [facility] 6 10:21:26 Degenera tion of lumbar interver tebral disc 04684727 Davion albarran [facility] 6 10:21:26 Body mass index 30+ - obesity 857150079 Davion albarran [facility] 6 10:21:27 Snoring 9[address]34967 Davion albarran [facility] 6 10:21:27 Polyp of colon 27461373 Davion albarran [facility] 6 10:21:26 Impaired fasting glycemia 361687659 Active Alana albarran [facility] 6 15:07:19 Advance directiv e discusse d with patient 643280638 Completed 09/15/[address] [facility] 7 09:45:44 Allergic rhinitis 82881107 Davion albarran [facility] 6 10:21:26 Tobacco user 895624581 Davion albarran [facility] 6 10:21:26 Adult health examinat ion Completed 09/15/2016 Carmen albarran, [facility] 7 09:45:47 Hyperlip idemia 91269274 Davion albarran [facility] 6 10:21:26 Displace ment of lumbar interver tebral disc without myelopat hy 59551590 Davion albarran [facility] 6 10:21:26 Primary malignan t neoplasm of prostate 46734602 Active Alana Vinsonvedo deion [facility] 6 15:07:19 Onychomy cosis due to dermatop hyte 240249441 Active Jon Bazan tom deion, [facility] 6 10:21:26 Disorder of bone and articula r cartilag e 075742784 Active Jon albarran, [facility] 6 10:21:27 Pityrias is versicol or 53622674 Active Jon Bazan tom deion, [facility] 6 10:21:26 Influenz a vaccine needed 02715051510 06 Completed 200911/09/2013 RECORDED 02/15/20 10 1:26PM BY ERICA SUN, OFFICE VISIT Jon albarran, [facility] 6 10:21:27 Influenz a vaccine needed 59258341021 06 Completed 200911/10/2013 RECORDED 02/15/20 10 1:26PM BY ERICA SUN, OFFICE VISIT Jon albarran, [facility] 6 10:21:27 Influenz a vaccine needed 03345707671 06 Completed 200910/17/2013 RECORDED 02/15/20 10 1:26PM BY ERICA SUN, OFFICE VISIT Jon albarran, [facility] 6 10:21:27 Cough 79211516 Completed 201111/09/2013 RECORDED 02/23/20 12 12:33PM BY SAIMA BONILLA MA, ANNOTATI ON/ADDEN DUM Jon Bazan tom deion, [facility] 6 10:21:27 Enthesop athy of knee 69541451 Completed 201111/09/2013 RECORDED 02/23/20 12 12:33PM BY SAIMA BONILLA MA, ANNOTATI ON/ADDEN DUM Jon Bazan tom deion, [facility] 6 10:21:27 Fever 726909886 Completed 201111/09/2013 IMPRESSI ON: CHILLS AND MYALGIAS SINCE YESTERDA Y, INTERMIT TENT COUGH X 10 DAYS; RECORDED 02/23/20 12 12:33PM BY SAIMA BONILLA MA, ANNOTATI ON/ADDEN DUM Jon D'Alessan tom null, [facility] 6 10:21:27 Disorder of bursa of shoulder region 97575881 Completed 201111/09/2013 RECORDED 02/23/20 12 12:33PM BY SAIMA BONILLA MA, ANNOTATI ON/ADDEN DUM Jon D'Alessan tom null, [facility] 6 10:21:27 Screenin g for malignan t neoplasm of colon Completed 201111/09/2013 RECORDED 02/23/20 12 12:33PM BY SAIMA BONILLA MA, ANNOTATI ON/ADDEN DUM Jon D'Alessan tom null, [facility] 6 10:21:27 Cough 31124022 Completed 201111/10/2013 RECORDED 02/23/20 12 12:33PM BY SAIMA BONILLA MA, ANNOTATI ON/ADDEN DUM Jon D'Alessan tom null, [facility] 6 10:21:27 Enthesop athy of knee 99661329 Completed 201111/10/2013 RECORDED 02/23/20 12 12:33PM BY SAIMA BONILLA MA, ANNOTATI ON/ADDEN DUM Jon D'Alessan tom null, [facility] 6 10:21:27 Fever 169652938 Completed 201111/10/2013 IMPRESSI ON: CHILLS AND MYALGIAS SINCE YESTERDA Y, INTERMIT TENT COUGH X 10 DAYS; RECORDED 02/23/20 12 12:33PM BY SAIMA BONILLA MA, ANNOTATI ON/ADDEN DUM Jon D'Alessan tom null, [facility] 6 10:21:27 Disorder of bursa of shoulder region 84757035 Completed 201111/10/2013 RECORDED 02/23/20 12 12:33PM BY SAIMA BONILLA MA, ANNOTATI ON/ADDEN DUM Jon D'Alessan tom null, [facility] 6 10:21:27 Screenin g for malignan t neoplasm of colon Completed 201111/10/2013 RECORDED 02/23/20 12 12:33PM BY SIAMA BONILLA MA, ANNOTATI ON/ADDEN DUM Jon D'Alessan tom null, [facility] 6 10:21:27 Cough 44959977 Completed 201110/17/2013 RECORDED 02/23/20 12 12:33PM BY SAIMA BONILLA MA, ANNOTATI ON/ADDEN DUM Jon D'Alessan tom null, [facility] 6 10:21:27 Enthesop athy of knee 29127145 Completed 201110/17/2013 RECORDED 02/23/20 12 12:33PM BY SAIMA BONILLA MA, ANNOTATI ON/ADDEN DUM Jon D'Alessan tom null, [facility] 6 10:21:27 Fever 984181299 Completed 201110/17/2013 IMPRESSI ON: CHILLS AND MYALGIAS SINCE YESTERDA Y, INTERMIT TENT COUGH X 10 DAYS; RECORDED 02/23/20 12 12:33PM BY SAIMA BONILLA MA, ANNOTATI ON/ADDEN DUM Jon D'Alessan tom null, [facility] 6 10:21:27 Disorder of bursa of shoulder region 74614161 Completed 201110/17/2013 RECORDED 02/23/20 12 12:33PM BY SAIMA BONILLA MA, ANNOTATI ON/ADDEN DUM Jon D'Alessan tom null, [facility] 6 10:21:27 Screenin g for malignan t neoplasm of colon Completed 201110/17/2013 RECORDED 02/23/20 12 12:33PM BY SAIMA BONILLA MA, ANNOTATI ON/ADDEN DUM Jon D'Alessan tom null, [facility] 6 10:21:27 Examinat ion for suspecte d mental disorder Completed 201311/09/2013 RECORDED 05/04/19 14 10:59AM BY SAIMA BONILLA MA, ANNOTATI ON/ADDEN DUM Jon D'Alessan tom null, [facility] 6 10:21:27 Examinat ion for suspecte d mental disorder Completed 201311/10/2013 RECORDED 05/04/19 14 10:59AM BY SAIMA BONILLA MA, ANNOTATI ON/ADDEN DUM Jon D'Alessan tom null, [facility] 6 10:21:27 Examinat ion for suspecte d mental disorder Completed 201310/17/2013 RECORDED 05/04/19 14 10:59AM BY SAIMA BONILLA MA, ANNOTATI ON/ADDEN DUM Jon D'Alessan tom null, [facility] 6 10:21:27 History of clinical finding in subject [id number] Completed 201301/19/2014 RECORDED 05/04/19 14 11:00AM BY SAIMA BONILLA MA, OFFICE VISIT Jon D'Alessan tom null, [facility] 6 10:21:27 Adult health examinat ion Completed 201310/17/2013 RECORDED 05/04/19 14 10:59AM BY SAIMA BONILLA MA, ANNOTATI ON/ADDEN DUM Carmen Miller MA null, [facility] 7 09:45:47 Problem Notes None recorded. Procedures Surgical History Date Name Laterality Status Provider Name and Address Organization Details Recorded Time 09/22/19 18 Mini-Cog Test completed Carmen Miller MA [facility] 09/21/2017 09:35:17 09/16/19 17 Fall Risk Assessment completed Carmen Miller MA [facility] 09/15/2016 10:44:31 09/16/19 17 Mini[facility]Cog Test [facility]2016 10:44:45 03/03/20 16 Colonoscopy completed [facility] 09/15/2016 09:46:34 08/13/19 16 Fall Risk Assessment completed [facility] 08/13/2015 10:12:19 08/13/19 16 Mini-Cog Test completed [facility] 08/13/2015 10:14:21 08/13/19 16 Advanced Care Planning completed [facility] 08/13/2015 10:11:28 05/25/19 15 Fall Risk Assessment completed [facility] 05/25/2014 09:46:46 05/25/19 15 Mini-Cog Test completed [facility] 05/25/2014 09:46:46 10/08/19 06 prostatectomy completed [facility] 01/18/2018 13:30:31 Orthopedic Surgery completed [facility] 01/19/2014 10:07:56 Imaging Results None recorded. Procedure Notes None recorded. Medical Equipment None Reported. Allergies Allergen ID Allergen Name Allergen Category Reaction Reaction Severity Criticality Documentation Date Start Date Code Code System Note Provider Name and Address Organization Details Recorded Time 6 No known allergy (situatio n) Not available Not available Not available Not available 10/17/2013 [id number], [place], [address] 5 18:45:11 No known drug allergies Medications Name Sig Start Date Stop Date Status Note LastModified by Organization Details LastModified Time cyclobenz aprine 10 mg tablet AT BEDTIME 02/20 completed RECORDED 02/21/20 11 2:37PM BY JOE BUCKLEY MA, OFFICE VISIT; Not Available Not Available Not Available cetirizin e 10 mg tablet Take 1 tablet every day by oral route for 30 days. 09/21 completed Not Available Not Available Not Available ibuprofen 800 mg tablet THREE TIMES DAILY 03/08 completed RECORDED 07/12/19 09 4:35PM BY JON MORENO MD, MEDICATI ON AUTO-SHEILA CTIVATIO N; Not Available Not Available Not Available benzonata te 200 mg capsule TID PRN COUGH 07/21 completed RECORDED 08/12/19 08 10:21AM BY JON MORENO MD, MEDICATI ON AUTO-SHEILA CTIVATIO N; Not Available Not Available Not Available Phenergan -Codeine 6.25 mg-10 mg/5 mL oral syrup Q 4 HOURS PRN COUGH 07/22 completed RECORDED 08/12/19 08 10:21AM BY JON MORENO MD, MEDICATI ON AUTO-SHEILA CTIVATIO N; Not Available Not Available Not Available prednison e 20 mg tablet Take 2 tablets every day by oral route for 15 days. 09/21 completed Not Available Not Available Not Available Zithromax Z-Campos 250 mg tablet QD 07/13 completed RECORDED 09/07/19 12 3:34PM BY PHYLLIS ZAPATA PA-C, MEDICATI ON AUTO-SHEILA CTIVATIO N;2PO QD FOR 1 DAY, THEN 1 QD FOR 4 DAYS. Not Available Not Available Not Available oxycodone -acetamin ophen 5 mg-325 mg tablet TWO TIMES DAILY, NEEDED 03/02 completed RECORDED 04/23/19 12 3:47PM BY JON MORENO MD, MEDICATI ON AUTO-SHEILA CTIVATIO N; Not Available Not Available Not Available Fluticaso ne Propionat e (Inhal) 50 mcg/BLIST inhl powd QD, EACH NARES 02/13 completed RECORDED 02/14/20 10 4:17PM BY ERICA DUPREE, [facility]ERT DUM; Not Available Not Available Not Available Guaifenes in AC 10 mg-100 mg/5 mL oral liquid Take 10 mL every day by oral route at bedtime for 5 days. 02/11 completed Not Available Not Available Not Available ibuprofen 600 mg tablet THREE TIMES DAILY, NEEDED 05/04 completed RECORDED 05/04/19 14 11:16AM BY SAIMA BONILLA MA, VINICIUSATI ON/ADDEN DUM; Not Available Not Available Not Available naproxen 500 mg tablet 09/21 completed Not Available Not Available Not Available fexofenad ine DAILY 02/13 completed RECORDED 02/14/20 10 4:17PM BY ERICA DUPREE, VINICIUSATI ON/ADDEN DUM; Not Available Not Available Not Available ProAir HFA 90 mcg/actua tion aerosol inhaler Inhale 2 puffs every 4 hours by inhalati on route as needed. active Not Available Not Available No t Available peg 3350-elec trolytes 236 gram-22.7 4 gram-6.74 gram-5.86 gram solution 09/15 completed Not Available Not Available Not Available diclofena c 1 % topical gel 09/21 completed Not Available Not Available Not Available Vitals Date Recorded Body height Body weight Body mass index (BMI) Heart rate Oxygen saturation Oxygen saturation in Arterial blood by Pulse oximetry Body temperature Systolic And Diastolic Provider Name and Address Organization Details Last Updated DateTime 6 175.26 cm 14839.7 32951 g 32.5 kg/m2 59 /min 98 % 98 % 98.2 [degF] 133/82 mm[Hg] Carmen Weisbrod [facility] 6 10:20:05 Date Recorded Body height Body mass index (BMI) Body weight Oxygen saturation Oxygen saturation in Arterial blood by Pulse oximetry Heart rate Body temperature Systolic And Diastolic Provider Name and Address Organization Details Last Updated DateTime 7 175.26 cm 31.7 kg/m2 92123.5 7 g 98 % 98 % 60 /min 98.6 [degF] 120/74 mm[Hg] Carmen Miller [facility] 7 10:43:02 Date Recorded Body height Body mass index (BMI) Body weight Heart rate Oxygen saturation Oxygen saturation in Arterial blood by Pulse oximetry Body temperature Systolic And Diastolic Provider Name and Address Organization Details Last Updated DateTime 8 175.26 cm 32.2 kg/m2 76815.1 4 g 61 /min 98 % 98 % 97.7 [degF] 136/73 mm[Hg] Carmen Miller MA [facility] 8 09:32:05 Date Recorded Body height Body mass index (BMI) Body weight Body temperature Oxygen saturation Oxygen saturation in Arterial blood by Pulse oximetry Heart rate Systolic And Diastolic Provider Name and Address Organization Details Last Updated DateTime 7 175.26 cm 32.1 kg/m2 25683.2 6 g 98 [degF] 96 % 96 % 63 /min 130/76 mm[Hg] Vdiya Vasques [facility] 7 11:47:51 Date Recorded Body height Body mass index (BMI) Body weight Oxygen saturation Oxygen saturation in Arterial blood by Pulse oximetry Heart rate Body temperature Systolic And Diastolic Provider Name and Address Organization Details Last Updated DateTime 7 175.26 cm 31.6 kg/m2 38129.7 7 g 97 % 97 % 66 /min 98.1 [degF] 129/76 mm[Hg] Carmen Miller MA [facility] 7 11:31:59 Social History Question Answer Notes LastModified by Organizat ion Details LastModified Time Tobacco Smoking Status [facility] 10:07:56 Do You Have An Advance Directive? Yes Information not available 08/13/2015 Is Blood Transfusion Acceptable In An Emergency? Yes Information not available 08/13/2015 What Is Your Level Of Caffeine Consumption? Moderate 2 Cups Of Coffee A Day Information not available 05/25/2014 What Type Of Diet Are You Following? REGULAR Information not available 05/25/2014 Live Alone Or With Others? With Others Information not available 05/25/2014 Do You Take Precautions To Prevent Distracted Driving? Yes Information not available 08/13/2015 How Often Do You Need To Have Someone Help You When You Read Instructions, Pamphlets, Or Other Written Material From Your Doctor Or Pharmacy? Never Information not available 08/13/2015 Have You Served In The ? Yes [place] Information not available 09/15/2016 What Was The Date Of Your Most Recent Tobacco Screening? 09/21/2017 Information not available 10/27/2018 How Many Children Do You Have? 1 Information not available 05/25/2014 Seat Belts Used Routinely Yes Information not available 08/13/2015 Are You Sexually Active? Yes Information not available 08/13/2015 Smoke Alarm In Home Yes Information not available 08/13/2015 Are You Passively Exposed To Smoke? No Information not available 08/13/2015 How Much Tobacco Do You Smoke? No Information not available 08/13/2015 Do You Use Sunscreen Routinely? Yes Information not available 08/13/2015 Sex: Unknown Functional Status Question Answer Note LastModified by Organizat ion Details LastModified Time What is your level of alcohol consumption? Occasional Beer, wine Information not available 08/13/2015 Are you currently employed? Yes Information not available 05/25/2014 Are you able to care for yourself independently? Yes Information not available 08/13/2015 What is your occupation? [employer] Information not available 05/25/2014 What is your exercise level? Occasional Information not available 05/25/2014 Mental Status None recorded. Family History Relationship Description Onset Age of this Age Resolved Age Notes LastModified by Organization Details LastModified Time Mother Well adult /201 5 [email or web address] Not available 09/15/2016 11:03:49 Father Malignant neoplasm of urinary bladder 90 [email or web address] Not available 2015 10:07:33 Medical History Condition Response Cancer Y Immunizations Vaccine Type Date Status Note Provider Nam e and Address Organization Details Recorded Time pneumococcal polysaccharide PPV23 6 completed Not Available [facility] 04/22/2019 02:21:26 Tdap 8 completed Not Available [facility] 10/17/2013 13:34:30 Pneumococcal conjugate PCV 13 8 completed Not Available [facility] 04/22/2019 02:21:38 Past Encounters Encounter ID Performer Location Encounter Start Date Encounter Closed Date Diagnosis/Indication Diagnosis SNOMED-CT Code Diagnosis ICD10 Code Diagnosis IMO Codes Diagnosis Note [id number] autoEComm erce [address] [facility],[address] [place] [address] 07/15/2007 00:00:00 [id number] autoEComm erce [address] [facility] [address] [place] [address] 08/12/2007 00:00:00 [id number] autoEComm erce [address] [facility] [address] [place] [address] 02/07/2008 00:00:00 [id number] autoEComm erce [address] [facility],[address] [place] [address] 07/24/2008 00:00:00 [id number] autoEComm erce [address] [facility],[address] [place] [address] 02/12/2009 00:00:00 [id number] autoEComm erce [address] [facility],[address] [place] [address] 02/14/2010 00:00:00 [id number] autoEComm erce [address] [facility],[address] [place] [address] 06/17/2010 00:00:00 [id number] autoEComm erce [address] [facility],[address] [place] [address] 02/20/2011 00:00:00 [id number] autoEComm erce [address] [facility],[address] [place] [address] 07/08/2011 00:00:00 [id number] autoEComm erce [address] [facility] [place] [address] 02/23/2012 00:00:00 [id number] autoEComm erce [address] [facility] [place] [address] 05/04/2013 00:00:00 [id number] LUCAS Recio Main Office [address] [place] [address] 01/19/2014 09:58:22 01/19/2014 10:36:32 Benign paroxysmal positional vertigo 943415744 home frank maneuver print out given and reviewed [id number] Jon valentine MD Main Office [address] [address] [place] [address] 05/25/2014 09:36:07 05/25/2014 10:35:23 Adult health examination 995529273 Primary ma lignant neoplasm of prostate [id number] Dr Dori Gaming from [facility] follow pt q 4 mos. PSA level was rising Body mass index 30+ - obesity 625531745 [id number] Jon valentine MD Main Office [address] [address] [place] [address] 08/13/2015 10:03:38 08/13/2015 11:07:49 Adult health examination 073571072 Z00.00 Primary ma lignant neoplasm of prostate 44952363 C61 Dr Dori Gaming from [facility] follow pt q 4 mos. PSA level was rising Impaired f asting glycemia 404796677 R73.01 Administra tion of pneumococcal vaccine 84938772 Z23 Advance di rective discussed with patient 669506628 Z71.89 [id number] Jon valentine MD Main Office [address] [address] [place] [address] 09/15/2016 10:29:53 09/15/2016 11:18:43 Adult health examination 556940259 Z00.00 Primary ma lignant neoplasm of prostate 46493095 C61 Dr Dori Gaming from [facility] follow pt q 6 mos. PSA level was 0.7/ No hormonal meds for years Body mass index 30+ - obesity 809849892 Z68.30 E66.9 Hyperlipidemia 94356431 E78.5 ASCVD risk 14 % due to age/gender . Pt can consider statin [id number] Ayush Zepeda PA-C Main Office [address] [address] [place] [address] 12/30/2016 11:39:52 12/30/2016 12:22:25 Cough 02977145 R05 check cxr to r/o pna. ? pnd is complicati ng his evening cough Upper resp iratory infection 68535328 J06.9 25 minute office visit with greater than 50% of the visit face-to-fa ce with the patient and/or family providing counseling and/or coordinati on of care. Tobacco user 319782543 Z 72.0 in past - see above - will check cxr - ? mild copd Wheezing symptom 2984357 08 R06.2 see below - rec mucolytic and alb. [id number] Jon valentine MD Main Office [address] [facility] [address] [place] [address] 02/11/2017 11:14:07 02/11/2017 12:12:20 Chronic cough 91681405 R05 most likely combinatio n of post viral w/ environmen jack allergy response. pt will call weather forcaster if not improving in next 1-2 weeks. [id number] Jon valentine MD Main Office [address] [facility] [address] [place] [address] 09/21/2017 09:24:27 09/21/2017 10:14:07 Adult health examination 791512182 Z00.00 Administra tion of pneumococcal vaccine 56934505 Z23 Administra tion of viral vaccine 96462433 Z23 Exposure t o communicable disease 116560967 Z20.9 Impaired f asting glycemia 445501343 R73.01 Health Concerns Section Related Observation LastModified by Organization Detai ls LastModified Time None Recorded Concern Status LastModified by Organization Details LastModified Time None Recorded Advance Directives Directive Y: Payers Insurance Date Sequence Insurance Name Policy Number Policy Bhagat Covered Member ID Bhagat Member ID Guarantor Name 09/27/2018 1 [place] [employer] Henrik Villegas Jr [id number] Henrik Villegas 09/27/2018 2 [place] [id number] Henrik Villegas Jr [id number] Henrik Villegas 01/20/2017 2 [place] [id number] Henrik Villegas [id number] Henrik Villegas 09/15/2016 1 [facility] GetSet [facility] (O) [id number] Henrik Villegas [id number] Henirk Villegas Notes Date Note Type Note Provider Name and Address Organization Details Recorded Time 09/16/19 17 text/ht ml Medicare Annual Wellness VisitReported by PatientSocial/Behavioral HistoryFor diet and nutrition, patient reportshealthy diet,discussed portion control, anddiscussed diet improvement. For fracture risk, patient reportsno history of fractures,no recent explained fracture,no sudden unexplained fractures, andno previous musculoskeletal injuries. For physical activity, patient reportsexercises on a regular basis,recent increase in physical activity, andgood physical condition.Mental Status:For depression risk, patient reportsnever feels sad, empty, or tearful,no loss of interest in activities,no significant changes in weight,no sleep disturbances or insomnia,no agitation,no loss of energy,no feelings of worthlessness or guilt,no thoughts of suicide,no history of depression, andno history of mood disorders. For orientation, patient reportsno disorientation to time,no disorientation to date, andno disorientation to place. For concentration and memory, patient reportsno decreased concentrating ability,no memory lapses or loss, anddoes not forget words. For speech/motor difficulties, patient reportsno speech difficulties,no difficulty expressing formulated concepts,no difficulty with fine manipulative tasks,no difficulty writing/copying,no slowed reaction time, anddoes not knock things over when trying to pick them up.Functional AbilityFor hearing, patient reportsno loss of hearing. For vision, patient reportsno vision problems. For activities of daily living, patient reportsable to bathe with limited or no assistance,able to contol urination and bowels,able to dress with limited or no assistance,able to feed self with limited or no assistance,able to get out of chair or bed with limited or no assistance,able to groom with limited or no assistance, andable to toilet with limited or no assistance. For instrumental activities of daily living, patient reportsable to do house work with limited or no assistance,able to grocery shop with limited or no assistance,able to manage medications with limited or no assistance,able to manage money with limited or no assistance,able to prepare meals with limited or no assistance, andable to use the phone with limited or no assistance. For falls risk assessment, patient reportsno frequent falls while walking,no fall in the past year,no fall since last visit, andno dizziness/vertigo. For home safety, patient reportsno unsafe xander hazzards,no unsafe stairs,no unsafe gas appliances,working smoke/co detectors,wears protective head gear for biking/high velocity,use of seatbelts,practicing 'safer sex',no vision or hearing loss while driving,no fire arms,has hand bars in the bathroom/shower, andgood lighting in the home. Generic HPI TemplateReported by Patient Jon Elli albarran, [facility] 09/15/2016 12:30:50 12/31/19 17 text/ht ml ROS as noted in the HPI no h/o asthma, but + h/o tobacco - quit ~ 40 yrs ago - ~ 10 pyh + wheezing when lays down, not sleeping well c/o cough, cold sxs x 3-4 days, fatigue no f/c, sob has used archie-seltzer Bryson Lopez MD [address] [address], [place], [address], [facility] 12/30/2016 15:37:38 02/12/20 17 text/ht ml CoughReported by PatientHPIFor associated symptoms, patient reportspost nasal dripbut reportsno fever,no chills,no chest pain,no heartburn,no nausea, andno vomiting. For severity, patient reportsimproving(slowly. pt has less congestion but still has cough. occ productive of yellow phlegm). For duration, patient reportsintermittentandsymptoms lasting over 2 weeks. For timing, patient reportsgradual. For context, patient reportsnon-smoker. Jon albarran, [facility] 02/11/2017 12:18:43 09/22/19 18 text/ht ml Medicare Annual Wellness VisitReported by PatientSocial/Behavioral HistoryFor diet and nutrition, patient reportshealthy diet,discussed portion control, anddiscussed diet improvement. For fracture risk, patient reportsno history of fractures,no recent explained fracture,no sudden unexplained fractures, andno previous musculoskeletal injuries. For physical activity, patient reportsexercises on a regular basis,recent increase in physical activity, andgood physical condition.Mental Status:For depression risk, patient reportsnever feels sad, empty, or tearful,no loss of interest in activities,no significant changes in weight,no sleep disturbances or insomnia,no agitation,no loss of energy,no feelings of worthlessness or guilt,no thoughts of suicide,no history of depression, andno history of mood disorders. For orientation, patient reportsno disorientation to time,no disorientation to date, andno disorientation to place. For concentration and memory, patient reportsno decreased concentrating ability,no memory lapses or loss, anddoes not forget words. For speech/motor difficulties, patient reportsno speech difficulties,no difficulty expressing formulated concepts,no difficulty with fine manipulative tasks,no difficulty writing/copying,no slowed reaction time, anddoes not knock things over when trying to pick them up.Functional AbilityFor hearing, patient reportsno loss of hearing. For vision, patient reportsno vision problems. For activities of daily living, patient reportsable to bathe with limited or no assistance,able to contol urination and bowels,able to dress with limited or no assistance,able to feed self with limited or no assistance,able to get out of chair or bed with limited or no assistance,able to groom with limited or no assistance, andable to toilet with limited or no assistance. For instrumental activities of daily living, patient reportsable to do house work with limited or no assistance,able to grocery shop with limited or no assistance,able to manage medications with limited or no assistance,able to manage money with limited or no assistance,able to prepare meals with limited or no assistance, andable to use the phone with limited or no assistance. For falls risk assessment, patient reportsno frequent falls while walking,no fall in the past year,no fall since last visit, andno dizziness/vertigo. For home safety, patient reportsuse of seatbeltsandgood lighting in the home. Generic HPI TemplateReported by Patient Jon albarran [facility] [place] 09/21/2017 10:08:33
--- OUTSIDE RECORDS SUMMARY | 2025-02-05 14:33 | XMS_ITS | Encounter Summary ---
Author Organization [facility] Address [address] [place] [address] Phone Care Team Providers Care Senior Cognos Developer Name Role Phone Carmelita Gaming MD Unavailable Roberta Avila MD Primary Care Provider [phone] Kim Freeman RN Unavailable [email or web address] Reynold Bynum MD, [facility] Unavailable [phone] Encounter Details Date Type Department Care Team (Late st Contact Info) Description 01/03/2021 Procedure Pass [facility] Periop [address] [place] [address] Social History Tobacco Use Types Packs/Day Years Used Date Smoking Tobacco: Former Smokeless Tobacco: Never Comments:Smoking History Pac ks/day: <=0.5 Sex and Gender Information Value Date Recorded Sex Assigned at Male 04/07/2021 4:15 PM EST Legal Sex Male 4:59 PM EST Gender Identity Male 04/07/2021 4:15 PM EST Sexual Orientation Straight 04/07/2021 4: 15 PM EST documented as of this encounter Functional Status * Calculated C-SSRS Risk Score (Lifetime/Recent) Answer Date of Assessment Author No Risk Indicated 01/03/2021 8:38 PM EDT Natividad Mendez RN * [place] Suicide Severity Rating Scale (Screener/Recent Self-Report) Question Answer Date of Assessment Author 1. Wish to be (Past 1 Month) No 01/03/2021 8:38 PM EDT Natividad Rodriguez, YANNICK 2. Non-Specific Active Suicidal Thoughts (Past 1 Month) No 01/03/2021 8:38 PM EDT Natividad Rodriguez RN 6. Suicidal Behavior (Lifetime) No 01/03/2021 8:38 PM EDT Natividad Rodriguez RN documented as of this encounter Plan of Treatment Upcoming Encounters Date Type Department Care Team (Late st Contact Info) Description 05/29/2025 9:00 AM EST Blood Draw Laboratory Services, [address] [place] [address] Carmelita Gaming MD [address] [place] [address] [email or web address] 05/29/2025 10:00 AM EST Office Visit [facility], [address] [place] [address] Carmelita Gaming MD [address] [place] [id number] [email or web address] 06/08/2025 11:00 AM EST Office Visit [facility] [address] [place] [address] Reynold Bynum MD, [address] [address] [email or web address] 06/26/2025 7:00 PM EDT Procedure visit [facility] Sleep Lab Home Sleep Apnea Testing Program [address] [place] [address] Reynold Bynum MD, [facility] [address] [place] [address] [email or web address] documented as of this encounter Visit Diagnoses Not on filedocumented in this encounter Additional Health Concerns Infection Onset Date Last Indicated Resolved Time COVID-19 03/03/2021 03/03/2021 03/23/2021 1:21 AM EST documented as of this encounter Care Teams Senior Cognos Developer Relationship Specialty Start Date End Date Roberta Avila MD [address] [address] PCP - General Internal Medicine 07/12/18 Carmelita Gaming MD [address] [place] [address] [place] [address] [email or web address] 01/18/18 Kim Freeman RN [address] [address] [email or web address] Primary Infusion Nurse 02/02/19 Reynold Bynum MD, [facility] [address] [place] [address] [email or web address] Pulmonary Disease 04/09/23 documented as of this encounter Additional Source Comments The information contained in this document represents components of the legal health record. It is not the complete legal health record.[facility]
--- OUTSIDE RECORDS SUMMARY | 2025-02-05 14:33 | XMS_ITS | Clinical Summary ---
Author Organization [facility] Address [address] [place] [address] Care Team Providers Care Client Account Manager Name Role Phone Unknown, Pcp MD Primary Care Provider Unavailabl e Allergies No known active allergies Immunizations Name Administration Dates Next Due Tdap 06/09/2024 Social History Tobacco Use Types Packs/Day Years Used Date Smoking Tobacco: Never Assessed Humiliation, Afraid, Rape, and Kick questionnair e Answer Date Recorded Within the last year, have y ou been afraid of your partner or ex-partner? No 06/09/2024 Emotionally Abused Not on file 06/09/2024 Physically Abused Not on file 06/09/2024 Sexually Abused Not on file 06/09/2024 Sex and Gender Information Value Date Recorded Sex Assigned at Not on file Legal Sex Male 12:19 AM EST Gender Identity Not on file Sexual Orientation Not on file Last Filed Vital Signs Vital Sign Reading Time Taken Comments Blood Pressure 137/75 06/09/2024 3:30 AM EST Pulse 83 06/09/2024 3:30 AM EST Temperature 37.5 C (99.5 F) 06/09/2024 3:30 AM EST Respiratory Rate 18 06/09/2024 3:30 AM EST Oxygen Saturation 95% 06/09/2024 3:30 AM EST Inhaled Oxygen Concentration - - Weight 96.4 kg (212 lb 8.4 oz) 06/09/2024 12:53 AM EST Height - - Body Mass Index - - Plan of Treatment Health Maintenance Due Date Last Done Comments MEDICARE ANNUAL WELLNESS VISIT (AWV) 1950 HEPATITIS C SCREENING 1965 ZOSTER VACCINE (1 of 2) 1998 RSV IMMUNIZATION (1 - 1-dose 75+ series) 06/25/2023 INFLUENZA VACCINE (#1) 2024 , 01/10/2019, 01/18/2018, Additional history exists COVID-19 IMMUNIZATION ( - 2023- season) 2024 DTAP/TDAP/TD VACCINES (3 - Td or Tdap) 06/09/2034 06/09/2024, 08/12/2007 PNEUMOCOCCAL VACCINE: 50+ YEARS Completed 09/21/2017, 08/13/2015 IPV VACCINES Aged Out No longer eligi ble based on patient's age to complete this topic MENINGOCOCCAL B VACCINE Aged Out No l onger eligible based on patient's age to complete this topic Insurance MEDICARE PART A AND B [facility] Care Teams Client Account Manager Relationship Specialty Start Date End Date Unknown, Pcp, Unknown Address Unknown [place] [id number] PCP - General Internal Medicine 06/09/24
== END ==
LOC: HO.SL 11:23
PROVIDERS: PCP Hospitalist; Visit Provider Internal Medicine
DX: G47.33 Obstructive sleep apnea (adult) (pediatric) (principal); I27.20 Pulmonary hypertension, unspecified; E66.9 Obesity, unspecified; Z68.32 Body mass index [BMI] 32.0-32.9, adult
CPT/HCPCS: 95806

== ENCOUNTER → 2025-02-05 21:00 | Outpatient (BNV) | payer MEDICARE, SELFPAY | PROVIDERS: PCP Hospitalist; Visit Provider Internal Medicine | DX: R06.83 Snoring (principal) | CPT/HCPCS: 95806 ==